=== PATIENT | female | born 1935 | race Caucasian/White ===

== ENCOUNTER → 2017-11-06 10:47 | Outpatient (CLI) | payer MEDICARE, SELFPAY ==
--- NOTE | 2017-11-06 10:51 | US_ITS ---
STUDY: RENAL ULTRASOUND - COMPLETE REASON FOR EXAM: Female, 82 years old. CKD STAGE III TECHNIQUE: Ultrasound evaluation of the kidneys was performed with real-time and static yi-scale imaging. COMPARISON: None. FINDINGS: RIGHT KIDNEY: Normal location of the right kidney, which is normal in size. The right kidney measures 8.1X4.3X3.8 cm. There is a normal cortex of the right kidney. The renal cortex measures 1.2 cm. There is no right renal mass or cyst. There are no right renal calculi. There is no right hydronephrosis. DISTAL RIGHT URETER: There is non-visualization of the distal right ureter. There is no demonstrated right ureterovesical junction calculus. There is no demonstrated right ureteral jet. LEFT KIDNEY: Normal location of the left kidney, which is normal in size. The left kidney measures 9.2X3.6X3.7 cm. There is a normal cortex of the left kidney. The renal cortex measures 1.3 cm. There is no left renal mass or cyst. There are no left renal calculi. There is no left hydronephrosis. DISTAL LEFT URETER: There is non-visualization of the distal left ureter. There is no demonstrated left ureterovesical junction calculus. There is no demonstrated left ureteral jet. AORTA: There is obscuration of the abdominal aorta by overlying bowel gas BLADDER: The distended urinary bladder has a volume of 49 ml. There is a normal wall thickness of the distended urinary bladder. There is no demonstrated mass within the urinary bladder. There are no demonstrated bladder calculi. There is hypoechoic focus in the left ovary measuring 59 x X3.9 X43 mm. US/Kidney and Bladder IMPRESSION: Normal ultrasound of the kidneys and urinary bladder. Incidental note of a possible left ovarian cyst. Dedicated pelvic ultrasound could further evaluate. This is an abnormal finding for the patient's age. Electronically Signed: Piyush Ross MD at 20:25 EDT , Service support ,
== END ==
PROVIDERS: Family Provider Nurse Practitioner Family; PCP Nurse Practitioner Family; Visit Provider Internal Medicine Nephrology
DX: N18.3 Chronic kidney disease, stage 3 (moderate) (principal)
CPT/HCPCS: 76770

== ENCOUNTER → 2017-11-19 12:37 | Outpatient (CLI) | payer MEDICARE, SELFPAY ==
--- NOTE | 2017-11-19 12:40 | US_ITS ---
STUDY: ULTRASOUND OF THE FEMALE PELVIS - COMPLETE REASON FOR EXAM: Female, 82 years old. Ovarian cyst. LMP: The patient is postmenopausal. TECHNIQUE: Transabdominal TECHNICAL QUALITY: Adequate. COMPARISON: None. FINDINGS: The uterus is anteverted and is in a midline position. The uterus measures 5.4 cm x 3.7 cm x 1.7 cm. Normal uterine cervix. The endometrium is thickened and measures 7.7 mm in thickness, and is fluid distended. There is no demonstrated endometrial mass. There is no demonstrated myometrial mass. I.U.D. - The patient does not have an I.U.D. The right ovary is non-visualized. The left ovary is visualized. The left ovary is enlarged and measures 6.8 cm x 4.6 x centimeters 4.4 cm. There is a 5.7 cm x 3.7 cm x 3.7 cm cyst in the left ovary. There is no visualized left adnexal mass or complex lesion. There is normal arterial and normal venous vascularity. There is no fluid in the cul-de-sac. The pre void volume of the bladder was 295 ml. Polycystic ovary disease: No. US/Pelvic (Non ) IMPRESSION: Thickened fluid filled endometrium. Enlarged left ovary with large left ovarian cyst. Clinical correlation is recommended. Electronically Signed: Juan Weems MD at 9:05 EDT Tel [phone], Service support ,
== END ==
PROVIDERS: Family Provider Nurse Practitioner Family; PCP Nurse Practitioner Family; Visit Provider Nurse Practitioner Family
DX: R93.5 Abnormal findings on diagnostic imaging of other abdominal regions, including retroperitoneum (principal)
CPT/HCPCS: 76856

== ENCOUNTER → 2018-02-04 14:19 | Outpatient (CLI) | payer MEDICARE, SELFPAY ==
[2018-02-04 16:26] LABS: Albumin, Serum 3.9 g/dL (3.2-5.0); BUN 18 mg/dL (7-18); BUN/Creat Ratio 15.8 RATIO (10-20); Chloride 106 mmol/L (98-107); Creatinine, Serum 1.14 mg/dL (0.55-1.02); EST Glomerular Filtration Rate 49 mL/min (>60); Est Glom Filt Rate - Afr Amer 59 mL/min (>60); Glucose 90 mg/dL (74-106); Phosphorus 3.3 mg/dL (2.5-4.9); Sodium Level 141 mmol/L (136-145)
--- OUTSIDE RECORDS SUMMARY | 2018-03-23 11:33 | XMS RPT_ITS ---
:1935 Author Organization OHIP Care Team Providers Name Role Phone FAUSTO GALICIA CNP Attending Unavailable FAUSTO GALICIA CNP Primary Care Unavailable JAYNE ANTHONY MDH Attending Unavailable FAUSTO GALICIA CNP Primary Care Unavailable FAUSTO GALICIA CNP Attending Unavailable FAUSTO GALICIA CNP Primary Care Unavailable FAUSTO GALICIA CNP Attending Unavailable FAUSTO GALICIA CNP Primary Care Unavailable Lois Newton Attending Unavailable Lois Newton Referring Unavailable Fausto Galicia DATA PROCESSING OPERATOR-C Primary Care Unavailable Lois Newton Attending Unavailable Fausto Galicia DATA PROCESSING OPERATOR-C Primary Care Unavailable Fausto Galicia DATA PROCESSING OPERATOR-C Attending Unavailable Fausto Galicia DATA PROCESSING OPERATOR-C Primary Care Unavailable PROBLEMS PROBLEMS DATE TYPE CONDITION / CODE ATTENDING STATUS SOURCE 03/16/2018 Admitting Hypothyroidism, NISHA LLAMAS, Active [employer] Diagnosis unspecified / FAUSTO Vega E03.9(ICD-10) Repository 11/06/2017 Unknown N18.3 - Chronic [place]manLois Active Liam kidney disease, [facility] stage 3 (moderate) Hospital / N18.3(ICD-10) Repository 09/08/2017 Admitting Vitamin D NISHA LLAMAS, Active [employer] Diagnosis deficiency, FAUSTO Vega unspecified / Repository E55.9(ICD-10) 09/08/2017 Admitting Hyperlipidemia, NISHA LLAMAS, Active [employer] Diagnosis unspecified / FAUSTO Vega E78.5(ICD-10) Repository 09/08/2017 Admitting Essential NISHA LLAMAS, Active [employer] Diagnosis (primary) FAUSTO Vega hypertension / Repository I10(ICD-10) 04/07/2017 Admitting Chronic kidney NISHA LLAMAS, Active [employer] Diagnosis disease, stage 3 FAUSTO Vega (moderate) / Repository N18.3(ICD-10) PROCEDURES PROCEDURES No Procedure Records FoundRESULTS RESULTS CBC Collected: 03/16/2018 Status: F Source: [facility] 10:10 AM [facility] REPOSITORY TYPE CODE TESTS RESULT OUT OF REFERENCE UNITS RANGE LAB WBC(LOINC) 4.60-10.80 10 3/mcL WBC 4.90 LAB RBCCT(LOINC 4.20-5.40 10 6/mcL ) RBC 4.29 LAB HGB(LOINC) 12.0-16.0 G/dL Hgb 12.7 LAB HCT(LOINC) 37.0-47.0 % Hct 38.2 LAB MCV(LOINC) 80.0-94.0 fL MCV 89.0 LAB MCH(LOINC) 27.0-31.2 pg MCH 29.5 LAB MCHC(LOINC) 33.0-37.0 G/dL MCHC 33.2 LAB RDW(LOINC) 11.5-14.5 % High RDW 15.4 LAB PLT(LOINC) 130-400 10 3/mcL Platelet 219 LAB MPV(LOINC) 7.4-10.4 fL MPV 8.3 Performed By: #### CBC, ADIFF, ANEU #### [address] [address] #### TSH, FT4, LIPID, CMP, GFR #### [place] [address] .AUTO DIFF Collected: 03/16/2018 Status: F Source: [facility] 10:10 AM [facility] REPOSITORY TYPE CODE TESTS RESULT OUT OF REFERENCE UNITS RANGE LAB NII(LOINC) 37.0-80.0 % Neutrophil % 64.4 LAB LYM(LOINC) 10.0-50.0 % Lymphocyte % 21.0 LAB MON(LOINC) 1.7-13.0 % Monocyte % 12.2 LAB EO(LOINC) 0.0-7.0 % Eosinophil % 1.3 LAB BAS(LOINC) 0.0-2.5 % Basophil % 1.1 LAB ABLYM(LOIN 0.77-3.85 10 3/mcL C) Lymphocyte, 1.00 Absolute LAB YEIMI(LOINC 0.15-1.00 10 3/mcL ) Monocyte, 0.60 Absolute LAB AEOS(LOINC 0.00-0.40 10 3/mcL ) Eosinophil, 0.10 Absolute LAB ABAS(LOINC 0.00-0.19 10 3/mcL ) Basophil, 0.10 Absolute Performed By: #### CBC, ADIFF, ANEU #### [place] [id number] #### TSH, FT4, LIPID, CMP, GFR #### [place] [address] .NEUABS Collected: 03/16/2018 Status: F Source: [facility] 10:10 AM [facility] REPOSITORY TYPE CODE TESTS RESULT OUT OF REFERENCE UNITS RANGE LAB ANEU(LOINC) 2.85-6.16 10 3/mcL Neutrophil, 3.20 Absolute Performed By: #### CBC, ADIFF, ANEU #### [place] [id number] #### TSH, FT4, LIPID, CMP, GFR #### [place] [address] TSH Collected: 03/16/2018 Status: F Source: [facility] 10:10 AM [facility] REPOSITORY TYPE CODE TESTS RESULT OUT OF RANGE REFERENCE UNITS LAB TSH(LOINC) 0.36-3.74 mcIU/mL TSH 1.69 Performed By: #### CBC, ADIFF, ANEU #### [address] [address] #### TSH, FT4, LIPID, CMP, GFR #### [address] [address] FT4 Collected: 03/16/2018 Status: F Source: [facility] 10:10 AM [facility] REPOSITORY TYPE CODE TESTS RESULT OUT OF RANGE REFERENCE UNITS LAB FT4(LOINC) 0.76-1.46 ng/dL High Free T4 1.52 Performed By: #### CBC, ADIFF, ANEU #### [address] [address] #### TSH, FT4, LIPID, CMP, GFR #### [address] [address] LIPID Collected: 03/16/2018 Status: F Source: [facility] 10:10 AM [facility] REPOSITORY TYPE CODE TESTS RESULT OUT OF REFERENCE UNITS RANGE LAB CHOL(LOINC 0-200 mg/dL ) Cholesterol High 230 Result Comment: Cholesterol Reference Interval: Less than 200 Desirable 200-239 Borderline high risk 240 and above High risk LAB TRIG(LOINC) 0-150 mg/dL Triglycerides 39 Result Comment: Triglyceride Reference Interval: Less than 150 Normal 150-199 Borderline high risk 200-499 High risk 500 or higher Very high risk LAB HD(LOINC) 40-60 mg/dL HDL High Cholesterol 112 LAB LDL(LOINC) 0-130 mg/dL LDL Cholesterol 110 Performed By: #### CBC, ADIFF, ANEU #### [address] [address] #### TSH, FT4, LIPID, CMP, GFR #### [address] [address] CMP Collected: 03/16/2018 Status: F Source: [facility] 10:10 AM [facility] REPOSITORY TYPE CODE TESTS RESULT OUT OF REFERENCE UNITS RANGE LAB GLU(LOINC) 83-110 mg/dL Glucose Level 93 LAB NA(LOINC) 136-145 mmol/L Sodium Level 143 LAB K(LOINC) 3.5-5.1 mmol/L Potassium Level 4.7 LAB CL(LOINC) 98-107 mmol/L Chloride 103 LAB CO2(LOINC) 23-31 mmol/L CO2 30 LAB EBAL(LOINC mEq/L ) Electrolyte Balance 10.0 LAB BUN(LOINC) 7-18 mg/dL BUN High 21 LAB CRE(LOINC) 0.55-1.02 mg/dL Creatinine High Lvl (s) 1.08 LAB BC(LOINC) 7-27 ratio BUN/Creatinine 19 Ratio LAB CA(LOINC) 8.4-10.2 mg/dL Calcium Lvl 9.7 LAB PROT(LOINC 6.4-8.2 G/dL ) Total Protein 7.0 LAB ALB(LOINC) 3.4-4.8 G/dL Albumin Level 4.2 LAB GLB(LOINC) G/dL Globulin 2.8 LAB AG(LOINC) 1.1-2.5 ratio A/G Ratio 1.5 LAB BILT(LOINC 0.2-1.0 mg/dL ) Bili Total 0.6 LAB AP(LOINC) 40-135 U/L Alk Phos 98 LAB AST(LOINC) 10-40 U/L AST/SGOT 27 LAB ALT(LOINC) 10-35 U/L ALT/SGPT 32 Performed By: #### CBC, ADIFF, ANEU #### [address] [address] #### TSH, FT4, LIPID, CMP, GFR #### [address] [address] .GFR Collected: 03/16/2018 Status: F Source: [facility] 10:10 AM [facility] REPOSITORY TYPE CODE TESTS RESULT OUT OF REFERENCE UNITS RANGE LAB GFRAA(LOINC ml/min/1.73 ) sqm GFR 59 Mozambican Result Comment: GFR Population mean for , Non- Americans Ages 20-29 = 116 mL/min/1.73 sq.m. Ages 30-39 = 107 mL/min/1.73 sq.m. Ages 40-49 = 99 mL/min/1.73 sq.m. Ages 50-59 = 93 mL/min/1.73 sq.m. Ages 60-69 = 85 mL/min/1.73 sq.m. Ages 70+ = 75 mL/min/1.73 sq.m. Chronic Kidney Disease: Less than 60 mL/min/1.73 square meters End Stage Renal Disease: Less than 15 mL/min/1.73 square meters LAB GFRNO(LOINC) ml/min/1.73sqm GFR Non- 49 Result Comment: GFR Population mean for , Non- Americans Ages 20-29 = 116 mL/min/1.73 sq.m. Ages 30-39 = 107 mL/min/1.73 sq.m. Ages 40-49 = 99 mL/min/1.73 sq.m. Ages 50-59 = 93 mL/min/1.73 sq.m. Ages 60-69 = 85 mL/min/1.73 sq.m. Ages 70+ = 75 mL/min/1.73 sq.m. Chronic Kidney Disease: Less than 60 mL/min/1.73 square meters End Stage Renal Disease: Less than 15 mL/min/1.73 square meters Performed By: #### CBC, ADIFF, ANEU #### [address] [address] #### TSH, FT4, LIPID, CMP, GFR #### [address] [address] RENAL PROFILE Collected: 02/04/2018 Status: F Source: [facility] 2:21 PM [facility] REPOSITORY TYPE CODE TESTS RESULT OUT OF RANGE REFERENCE UNITS LAB L501.0100 74-106 mg/dL Normal GLU 90 Result Comment: Please note revised GLUCOSE reference range effective 2017. LAB L501.1000 7-18 mg/dL Normal BUN 18 LAB L501.1100 0.55-1.02 mg/dL High CREAT,SERUM 1.14 Result Comment: The validity of the calculated GFR AND GFRAA in patients over 70 years has not been determined. Clinical correlation is essential. LAB L501.1110 >60 mL/min Low EST GFR 49 Result Comment: Non- GFR Calc LAB L501.1115 >60 mL/min Low EST GFR - AA 59 Result Comment: GFR Calc LAB L501.1300 10-20 RATIO Normal BUN/CRE 15.8 LAB L501.1800 3.2-5.0 g/dL Normal ALB 3.9 LAB L501.2200 8.5-10.1 mg/dL CA Normal 9.0 LAB L501.2300 2.5-4.9 mg/dL Normal PHOS 3.3 LAB L501.5300 136-145 mmol/L NA Normal 141 LAB L501.5600 3.5-5.1 mmol/L K Normal 4.0 LAB L501.5900 98-107 mmol/L CL Normal 106 LAB L501.6100 21.0-32.0 mmol/L Normal CO2 27.0 Performed By: #### L500.3600 #### [facility] [address] [facility] [place], [address] PELVIC (NON ) Observed: 11/19/2017 Status: F Source: [place] 12:40 PM [facility] REPOSITORY [facility] Imaging Services [address] [place] [address] Pelvic (Non ) MR#: [id number] Acct: [id number] Name: MARIO YEUNG Rep #: [id number] : 1935 F 82 From: Juan Weems MD PCP: MAGDA Ortiz Status: REG CLI Study: Pelvic (Non ) Date of Exam: 11/19/17 Exam# [id number] Ordering Dr: Fausto Galicia STUDY: ULTRASOUND OF THE FEMALE PELVIS - COMPLETE REASON FOR EXAM: Female, 82 years old. Ovarian cyst. LMP: The patient is postmenopausal. TECHNIQUE: Transabdominal TECHNICAL QUALITY: Adequate. COMPARISON: None. FINDINGS: The uterus is anteverted and is in a midline position. The uterus measures 5.4 cm x 3.7 cm x 1.7 cm. Normal uterine cervix. The endometrium is thickened and measures 7.7 mm in thickness, and is fluid distended. There is no demonstrated endometrial mass. There is no demonstrated myometrial mass. I.U.D. - The patient does not have an I.U.D. The right ovary is non-visualized. The left ovary is visualized. The left ovary is enlarged and measures 6.8 cm x 4.6 x centimeters 4.4 cm. There is a 5.7 cm x 3.7 cm x 3.7 cm cyst in the left ovary. There is no visualized left adnexal mass or complex lesion. There is normal arterial and normal venous vascularity. There is no fluid in the cul-de-sac. The pre void volume of the bladder was 295 ml. Polycystic ovary disease: No. US/Pelvic (Non ) IMPRESSION: Thickened fluid filled endometrium. Enlarged left ovary with large left ovarian cyst. Clinical correlation is recommended. Electronically Signed: Juan Weems MD at 9:05 EDT Tel [phone], Service support , CC: MAGDA Galicia [employer] Grower: Signed KIDNEY AND BLADDER Observed: 11/06/2017 Status: F Source: [place] 10:51 [facility] REPOSITORY [facility] Imaging Services [address] [place] [address] Kidney and Bladder MR#: [id number] Acct: [id number] Name: MARIO YEUNG Rep #: [id number] : 1935 F 82 From: Piyush Ross MD PCP: MAGDA Ortiz Status: REG CLI Study: Kidney and Bladder Date of Exam: 11/06/17 Exam# [id number] Ordering Dr: Lois Newton DO STUDY: RENAL ULTRASOUND - COMPLETE REASON FOR EXAM: Female, 82 years old. CKD STAGE III TECHNIQUE: Ultrasound evaluation of the kidneys was performed with real-time and static yi-scale imaging. COMPARISON: None. FINDINGS: RIGHT KIDNEY: Normal location of the right kidney, which is normal in size. The right kidney measures 8.1X4.3X3.8 cm. There is a normal cortex of the right kidney. The renal cortex measures 1.2 cm. There is no right renal mass or cyst. There are no right renal calculi. There is no right hydronephrosis. DISTAL RIGHT URETER: There is non-visualization of the distal right ureter. There is no demonstrated right ureterovesical junction calculus. There is no demonstrated right ureteral jet. LEFT KIDNEY: Normal location of the left kidney, which is normal in size. The left kidney measures 9.2X3.6X3.7 cm. There is a normal cortex of the left kidney. The renal cortex measures 1.3 cm. There is no left renal mass or cyst. There are no left renal calculi. There is no left hydronephrosis. DISTAL LEFT URETER: There is non-visualization of the distal left ureter. There is no demonstrated left ureterovesical junction calculus. There is no demonstrated left ureteral jet. AORTA: There is obscuration of the abdominal aorta by overlying bowel gas BLADDER: The distended urinary bladder has a volume of 49 ml. There is a normal wall thickness of the distended urinary bladder. There is no demonstrated mass within the urinary bladder. There are no demonstrated bladder calculi. There is hypoechoic focus in the left ovary measuring 59 x X3.9 X43 mm. US/Kidney and Bladder IMPRESSION: Normal ultrasound of the kidneys and urinary bladder. Incidental note of a possible left ovarian cyst. Dedicated pelvic ultrasound could further evaluate. This is an abnormal finding for the patient's age. Electronically Signed: Piyush Ross MD at 20:25 EDT , Service support , CC: MAGDA Galicia; Lois Newton DO [employer] Spr[employer] Grower: Signed CBC Collected: 09/08/2017 Status: F Source: [facility] 9:10 AM [facility] REPOSITORY TYPE CODE TESTS RESULT OUT OF REFERENCE UNITS RANGE LAB WBC(LOINC) 4.60-10.80 10 3/mcL WBC 4.70 LAB RBCCT(LOINC 4.20-5.40 10 6/mcL ) Low RBC 3.95 LAB HGB(LOINC) 12.0-16.0 G/dL Low Hgb 11.9 LAB HCT(LOINC) 37.0-47.0 % Low Hct 35.2 LAB MCV(LOINC) 80.0-94.0 fL MCV 89.0 LAB MCH(LOINC) 27.0-31.2 pg MCH 30.1 LAB MCHC(LOINC) 33.0-37.0 G/dL MCHC 33.8 LAB RDW(LOINC) 11.5-14.5 % High RDW 15.6 LAB PLT(LOINC) 130-400 10 3/mcL Platelet 202 LAB MPV(LOINC) 7.4-10.4 fL MPV 8.3 Performed By: #### CBC, ADIFF, ANEU, GFR, LIPID, CMP #### [address] [address] #### VIDH #### [address] [address] .AUTO DIFF Collected: 09/08/2017 Status: F Source: [facility] 9:10 AM [facility] REPOSITORY TYPE CODE TESTS RESULT OUT OF REFERENCE UNITS RANGE LAB NII(LOINC) 37.0-80.0 % Neutrophil % 61.6 LAB LYM(LOINC) 10.0-50.0 % Lymphocyte % 23.8 LAB MON(LOINC) 1.7-13.0 % Monocyte % 11.6 LAB EO(LOINC) 0.0-7.0 % Eosinophil % 2.4 LAB BAS(LOINC) 0.0-2.5 % Basophil % 0.6 LAB ABLYM(LOIN 0.77-3.85 10 3/mcL C) Lymphocyte, 1.10 Absolute LAB YEIMI(LOINC 0.15-1.00 10 3/mcL ) Monocyte, 0.50 Absolute LAB AEOS(LOINC 0.00-0.40 10 3/mcL ) Eosinophil, 0.10 Absolute LAB ABAS(LOINC 0.00-0.19 10 3/mcL ) Basophil, 0.00 Absolute Performed By: #### CBC, ADIFF, ANEU, GFR, LIPID, CMP #### [address] [address] #### VIDH #### [address] [address] .NEUABS Collected: 09/08/2017 Status: F Source: [facility] 9:10 AM [facility] REPOSITORY TYPE CODE TESTS RESULT OUT OF REFERENCE UNITS RANGE LAB ANEU(LOINC) 2.85-6.16 10 3/mcL Neutrophil, 2.90 Absolute Performed By: #### CBC, ADIFF, ANEU, GFR, LIPID, CMP #### [address] [address] #### VIDH #### [facility] [address] [place] [address] .GFR Collected: 09/08/2017 Status: F Source: [facility] 9:10 AM [facility] REPOSITORY TYPE CODE TESTS RESULT OUT OF REFERENCE UNITS RANGE LAB GFRAA(LOINC ml/min/1.73 ) sqm GFR >60 Mozambican Result Comment: GFR Population mean for , Non- Americans Ages 20-29 = 116 mL/min/1.73 sq.m. Ages 30-39 = 107 mL/min/1.73 sq.m. Ages 40-49 = 99 mL/min/1.73 sq.m. Ages 50-59 = 93 mL/min/1.73 sq.m. Ages 60-69 = 85 mL/min/1.73 sq.m. Ages 70+ = 75 mL/min/1.73 sq.m. Chronic Kidney Disease: Less than 60 mL/min/1.73 square meters End Stage Renal Disease: Less than 15 mL/min/1.73 square meters LAB GFRNO(LOINC) ml/min/1.73sqm GFR Non- 50 Result Comment: GFR Population mean for , Non- Americans Ages 20-29 = 116 mL/min/1.73 sq.m. Ages 30-39 = 107 mL/min/1.73 sq.m. Ages 40-49 = 99 mL/min/1.73 sq.m. Ages 50-59 = 93 mL/min/1.73 sq.m. Ages 60-69 = 85 mL/min/1.73 sq.m. Ages 70+ = 75 mL/min/1.73 sq.m. Chronic Kidney Disease: Less than 60 mL/min/1.73 square meters End Stage Renal Disease: Less than 15 mL/min/1.73 square meters Performed By: #### CBC, ADIFF, ANEU, GFR, LIPID, CMP #### [address] [address] #### VI #### [address] [address] LIPID Collected: 09/08/2017 Status: F Source: [facility] 9:10 AM [facility] REPOSITORY TYPE CODE TESTS RESULT OUT OF REFERENCE UNITS RANGE LAB CHOL(LOINC 131-200 mg/dL ) Cholesterol 200 Result Comment: Cholesterol Reference Interval: Less than 200 Desirable 200-239 Borderline high risk 240 and above High risk LAB TRIG(LOINC) 40-150 mg/dL Triglycerides 53 Result Comment: Triglyceride Reference Interval: Less than 150 Normal 150-199 Borderline high risk 200-499 High risk 500 or higher Very high risk LAB HD(LOINC) 35-90 mg/dL HDL Cholesterol 88 Result Comment: HDL Reference Interval: Less than 40 Low - high risk 60 or above Optimal/lowers risk LAB LDL(LOINC) 0-130 mg/dL LDL Cholesterol 101 Result Comment: LDL is a calculated result and requires a 12-hr fast. LDL Reference Interval: Less than 100 Optimal 100-129 Near or above optimal 130-159 Borderline high risk 160-189 High risk 190 and above Very high risk Performed By: #### CBC, ADIFF, ANEU, GFR, LIPID, CMP #### [address] [address] #### VIDH #### [address] [address] CMP Collected: 09/08/2017 Status: F Source: [facility] 9:10 AM [facility] REPOSITORY TYPE CODE TESTS RESULT OUT OF REFERENCE UNITS RANGE LAB GLU(LOINC) 83-110 mg/dL Glucose Level 86 LAB NA(LOINC) 136-146 mEq/L Sodium Level 142 LAB K(LOINC) 3.5-5.1 mEq/L Potassium Level 4.3 LAB CL(LOINC) 98-107 mEq/L Chloride 105 LAB CO2(LOINC) 23-31 mEq/L CO2 26 LAB EBAL(LOINC mEq/L ) Electrolyte Balance 11.0 LAB BUN(LOINC) 7.0-18.0 mg/dL BUN High 21.8 LAB CRE(LOINC) 0.6-1.2 mg/dL Creatinine Lvl (s) 1.0 LAB BC(LOINC) 7-27 ratio BUN/Creatinine 22 Ratio LAB CA(LOINC) 8.4-10.2 mg/dL Calcium Lvl 9.3 LAB PROT(LOINC 6.0-8.3 G/dL ) Total Protein 6.2 LAB ALB(LOINC) 3.4-4.8 G/dL Albumin Level 4.3 LAB GLB(LOINC) G/dL Globulin 1.9 LAB AG(LOINC) 1.1-2.5 ratio A/G Ratio 2.3 LAB BILT(LOINC 0.2-1.0 mg/dL ) Bili Total 0.6 LAB AP(LOINC) 40-135 IU/L Alk Phos 95 LAB AST(LOINC) 10-40 IU/L AST/SGOT 21 LAB ALT(LOINC) 10-35 IU/L ALT/SGPT 13 Performed By: #### CBC, ADIFF, ANEU, GFR, LIPID, CMP #### [address] [address] #### VIDH #### [place] [address] VIDH Collected: 09/08/2017 Status: F Source: [facility] 9:10 AM [facility] REPOSITORY TYPE CODE TESTS RESULT OUT OF RANGE REFERENCE UNITS LAB VIDH(LOINC) ng/mL Vit. D 42 25-Hydroxy Result Comment: Interpretive Values Based on Total 25(OH)D: Severe Deficiency <20 ng/mL Mild to Moderate Deficiency 20-30 ng/mL Optimum Levels 30-100 ng/mL Toxicity Possible >100 ng/mL Performed By: #### CBC, ADIFF, ANEU, GFR, LIPID, CMP #### [address] [address] #### VIDH #### [place] [address] CMP Collected: 04/07/2017 Status: F Source: [facility] 9:10 AM [facility] REPOSITORY TYPE CODE TESTS RESULT OUT OF REFERENCE UNITS RANGE LAB 1547-9 83-110 mg/dL GLUCOSE 93 LAB NA(LOINC) 136-146 mEq/L Sodium Level 139 LAB K(LOINC) 3.5-5.1 mEq/L Potassium Level 4.9 LAB CL(LOINC) 98-107 mEq/L Chloride 101 LAB CO2(LOINC) 23-31 mEq/L CO2 26 LAB EBAL(LOINC mEq/L ) Electrolyte Balance 12.0 LAB BUN(LOINC) 7.0-18.0 mg/dL BUN High 19.4 LAB CRE(LOINC) 0.6-1.2 mg/dL Creatinine Lvl (s) 1.0 LAB BC(LOINC) 7-27 ratio BUN/Creatinine 19 Ratio LAB CA(LOINC) 8.4-10.2 mg/dL Calcium Lvl 9.1 LAB PROT(LOINC 6.0-8.3 G/dL ) Total Protein 6.0 LAB ALB(LOINC) 3.4-4.8 G/dL Albumin Level 4.3 LAB GLB(LOINC) G/dL Globulin 1.7 LAB AG(LOINC) 1.1-2.5 ratio A/G Ratio 2.5 LAB BILT(LOINC 0.2-1.0 mg/dL ) Bili Total 0.7 LAB AP(LOINC) 40-135 IU/L Alk Phos 88 LAB AST(LOINC) 10-40 IU/L AST/SGOT 26 LAB ALT(LOINC) 10-35 IU/L ALT/SGPT 21 Performed By: #### CMP, GFR #### [address] [address] .GFR Collected: 04/07/2017 Status: F Source: [facility] 9:10 AM [facility] REPOSITORY TYPE CODE TESTS RESULT OUT OF REFERENCE UNITS RANGE LAB GFRAA(LOINC ml/min/1.73 ) sqm GFR 67 Mozambican Result Comment: GFR Population mean for , Non- Americans Ages 20-29 = 116 mL/min/1.73 sq.m. Ages 30-39 = 107 mL/min/1.73 sq.m. Ages 40-49 = 99 mL/min/1.73 sq.m. Ages 50-59 = 93 mL/min/1.73 sq.m. Ages 60-69 = 85 mL/min/1.73 sq.m. Ages 70+ = 75 mL/min/1.73 sq.m. Chronic Kidney Disease: Less than 60 mL/min/1.73 square meters End Stage Renal Disease: Less than 15 mL/min/1.73 square meters LAB GFRNO(LOINC) ml/min/1.73sqm GFR Non- 55 Result Comment: GFR Population mean for , Non- Americans Ages 20-29 = 116 mL/min/1.73 sq.m. Ages 30-39 = 107 mL/min/1.73 sq.m. Ages 40-49 = 99 mL/min/1.73 sq.m. Ages 50-59 = 93 mL/min/1.73 sq.m. Ages 60-69 = 85 mL/min/1.73 sq.m. Ages 70+ = 75 mL/min/1.73 sq.m. Chronic Kidney Disease: Less than 60 mL/min/1.73 square meters End Stage Renal Disease: Less than 15 mL/min/1.73 square meters Performed By: #### CMP, GFR #### Daya [address] [address] ALLERGIES ALLERGIES No Allergies Records FoundENCOUNTERS ENCOUNTERS ADMIT/DISCHARGE ACCOUNT NUMBER ADMITTING ENCOUNTER LOCATION SOURCE CLASS 03/16/2018 [id number] Ambulatory BBuilding:DR Daya CELESTIN [facility] Repository 02/04/2018 [id number] [facility] ding:LAB.FUT Repository URE 11/19/2017 [id number] [facility] ding:OPUS Repository 11/06/2017 [id number] [facility] ding:OPUS Repository 10/06/2017/10/07/19 [id number] Ambulatory [address] ding:[facility] Repository 09/08/2017/09/13/19 [id number] Ambulatory [address] ding:RIKA [facility] Repository 04/07/2017/04/11/19 [id number] Ambulatory [address] ding:[facility] Repository PAYERS PAYERS ENCOUNTER GUARANTOR PAYER SUBSCRIBER SOURCE 03/16/2018 MARIO E Primary MARIO Bhavna [facility] TROYERDOB: Insurance:MEDICARE TROYERDOB: [facility] [id number] PART B INSCOPolicy [id number] Repository [place] Number: [address] [facility] [id number] [place], [place] [address]Qur: Date:2018-03-16 - , [place] [address]Ivs: [id number] ()Tel: ([phone]) Name:PCGS () () [employer] [id number] () [address] [place] [address]MG: 02/04/2018 Mario E Primary Mario E Liam [id number] S Insurance:MEDICARE TroyerDOB: Community [place] [facility] [id number] Number: Repository , [place] [address]Crk: [id number] Date:2017-11-04 () 02/04/2018 Secondary NOT GIVENUNK [place] Insurance:SELF PAY [facility] Number: Effective Repository Date:2017-11-04 11/19/2017 Mario E Primary Mario E [place] [id number] Insurance:MEDICARE TroyerDOB: Community [place] [facility] [id number] [facility] Health Number: Repository , [place] [address]Vtc: [id number] Date:2017-11-10 () 11/19/2017 Secondary NOT GIVENUNK [place] Insurance:SELF PAY [facility] Number: Effective Repository Date:2017-11-10 11/06/2017 Mario E Primary Mario E Liam [id number] S Insurance:MEDICARE TroyerDOB: Community [place] [facility] [id number] View Health Number: Repository , [place] [address]Cai: [id number] Date:2017-11-03 () 11/06/2017 Secondary NOT GIVENUNK Liam Insurance:SELF PAY [facility] Number: Effective Repository Date:2017-11-03 10/06/2017 MARIO E Primary MARIO E [facility] TROYERDOB: Insurance:MEDICARE TROYERDOB: [facility] B PART BPolicy Number: [id number] Repository [place] [id number] [address]ANY Date:2017-08-12 [facility] , [place] [address]Qwk: [id number] , [place] [address]Obk: Name:PCGS (HP)Tel: ([phone]) Administrators LLCPO (HP) (WP) [address] [phone], 000-0000 (WP) [place] [address]CO: 09/08/2017 [facility]:MEDICARE TROYERDOB: [facility] B PART BPolicy Number: [id number] Repository [place] [id number] [address] [place] [address] Date:2017-09-08 - [facility], [place] [address]Zfn: [id number] , [place] [address]Uky: Name:[facility] (HP)Tel: ([phone]) Administrators LLCPO (HP) (WP) [address] [phone], 000-0000 (WP) [place] [address]XW: 04/07/2017 [facility] Insurance:MEDICARE TROYERDOB: [facility] B PART BPolicy Number: [id number] Repository [place] [id number] [address] [address]ABEBA Date:2017-04-07 - [facility] , [place] [address]Atb: [id number] , [place] [address]Kiq: Name:[facility] (HP)Tel: ([phone]) Administ[employer] LLCP[employer] (HP) (WP) [address] [address]Sqtcmeahv, [phone] (WP) [place] [address]IP:
== END ==
PROVIDERS: Family Provider Nurse Practitioner Family; PCP Nurse Practitioner Family; Visit Provider Internal Medicine Nephrology
DX: N18.3 Chronic kidney disease, stage 3 (moderate) (principal)
CPT/HCPCS: 36415; 80069

== ENCOUNTER → 2018-05-28 11:53 | Outpatient (CLI) | payer MEDICARE, SELFPAY ==
--- NOTE | 2018-05-28 11:56 | US_ITS ---
STUDY: ULTRASOUND OF THE FEMALE PELVIS - COMPLETE REASON FOR EXAM: Female, 83 years old. 3 of ovarian cyst. LMP: Postmenopausal. TECHNIQUE: Transabdominal TECHNICAL QUALITY: Limited. The examination is limited. The patient could not tolerate transvaginal ultrasound examination. COMPARISON: 11/19/2017. FINDINGS: The uterus is anteverted and is in a midline position. The uterus measures 5.2 x 2.7 x 2.1 cm. Normal uterine cervix. The endometrium measures 7 mm in thickness, and is hypoechoic. There is fluid within the endometrial cavity. There is no demonstrated myometrial mass. I.U.D. - The patient does not have an I.U.D. The right ovary is non-visualized. The left ovary is visualized. The left ovary measures 6.1 x 5.1 x 3.3 cm. There again is a large cyst in the left ovary measuring about 4.7 x 4.1 x 2.9 cm unchanged or may be slightly smaller in size in the previous exam. There is no visualized left adnexal mass or complex lesion. There is normal arterial and normal venous vascularity. There is no fluid in the cul-de-sac. The pre void volume of the bladder was 428 ml. Polycystic ovary disease: No. US/Pelvic (Non ) IMPRESSION: 1. Persistent nonspecific fluid within the endometrial cavity. 2. Borderline thickness of the endometrium for a postmenopausal patient. 3. Persistent left ovarian cyst unchanged or may be slightly smaller in size and the previous exam. 4. Further follow-up exams are recommended. Electronically Signed: Thiago Machado MD at 12:59 EDT Tel , Service support ,
== END ==
PROVIDERS: Family Provider Nurse Practitioner Family; PCP Nurse Practitioner Family; Referring Provider Nurse Practitioner Family; Visit Provider Nurse Practitioner Family
DX: N83.202 Unspecified ovarian cyst, left side (principal); N18.3 Chronic kidney disease, stage 3 (moderate)
CPT/HCPCS: 76856

== ENCOUNTER → 2018-12-09 11:43 | Outpatient (CLI) | payer MEDICARE, SELFPAY ==
[2018-12-09 12:36] LABS: BUN 26 mg/dL (7-18); BUN/Creat Ratio 23.4 RATIO (10-20); Calcium,Total 9.1 mg/dL (8.5-10.1); Chloride 104 mmol/L (98-107); Creatinine, Serum 1.11 mg/dL (0.55-1.02); EST Glomerular Filtration Rate 50 mL/min (>60); Est Glom Filt Rate - Afr Amer 60 mL/min (>60); Glucose 96 mg/dL (74-106); Phosphorus 3.2 mg/dL (2.5-4.9); Potassium 4.4 mmol/L (3.5-5.1); Sodium Level 139 mmol/L (136-145)
== END ==
PROVIDERS: Family Provider Nurse Practitioner Family; PCP Nurse Practitioner Family; Visit Provider Internal Medicine Nephrology
DX: N18.3 Chronic kidney disease, stage 3 (moderate) (principal)
CPT/HCPCS: 36415; 80069

== ENCOUNTER → 2019-05-09 13:05 | Outpatient (CLI) | payer MEDICARE, SELFPAY ==
[2019-05-09 14:18] LABS: Albumin, Serum 3.5 g/dL (3.2-5.0); BUN 18 mg/dL (7-18); BUN/Creat Ratio 17.3 RATIO (10-20); Calcium,Total 8.8 mg/dL (8.5-10.1); Chloride 108 mmol/L (98-107); Creatinine, Serum 1.04 mg/dL (0.55-1.02); EST Glomerular Filtration Rate 54 mL/min (>60); Est Glom Filt Rate - Afr Amer 65 mL/min (>60); Glucose 129 mg/dL (74-106); Phosphorus 3.2 mg/dL (2.5-4.9); Sodium Level 142 mmol/L (136-145)
== END ==
PROVIDERS: Family Provider Nurse Practitioner Family; PCP Nurse Practitioner Family; Referring Provider Internal Medicine Nephrology; Visit Provider Internal Medicine Nephrology
DX: N18.3 Chronic kidney disease, stage 3 (moderate) (principal)
CPT/HCPCS: 36415; 80069

== ENCOUNTER → 2020-04-30 09:50 | Outpatient (CLI) | payer MEDICARE, SELFPAY ==
[2020-04-30 11:07] LABS: Hematocrit 36.1 % (37-47); Hemoglobin 10.7 g/dL (12.0-15.0); Mean Corp Hgb Conc 29.6 g/dL (32-36); Mean Corpuscular Hgb 27.4 pg (27.0-32.0); Mean Corpuscular Volume 92.3 fL (81-99); Mean Platelet Vol. 10.1 fl (6.2-12.0); Platelet Count 242 K/mm3 (150-450); RBC Distribution Width CV 15.5 % (11.6-14.6); RBC Distribution Width SD 52.4 fl (35.1-43.9); Red Blood Count 3.91 M/mm3 (4.2-5.4); White Blood Count 5.6 K/mm3 (4.4-11.0)
[2020-04-30 11:30] LABS: PTHIN 69.2 pg/mL (18.4-80.1)
[2020-04-30 11:31] LABS: Albumin, Serum 3.9 g/dL (3.2-5.0); BUN 22 mg/dL (7-18); BUN/Creat Ratio 21.8 RATIO (10-20); Chloride 105 mmol/L (98-107); Creatinine, Serum 1.01 mg/dL (0.55-1.02); EST Glomerular Filtration Rate 56 mL/min (>60); Est Glom Filt Rate - Afr Amer 67 mL/min (>60); Glucose 92 mg/dL (74-106); Phosphorus 2.9 mg/dL (2.5-4.9); Potassium 4.2 mmol/L (3.5-5.1); Sodium Level 140 mmol/L (136-145)
[2020-04-30 11:39] LABS: Vitamin D,25 Hydroxy 40.8 ng/mL
== END ==
PROVIDERS: PCP Nurse Practitioner Family; Referring Provider Internal Medicine Nephrology; Visit Provider Internal Medicine Nephrology
DX: E55.9 Vitamin D deficiency, unspecified (principal); N18.30 Chronic kidney disease, stage 3 unspecified
CPT/HCPCS: 36415; 80069; 82306; 83970; 85027

== ENCOUNTER → 2021-01-23 16:49 | Outpatient (CLI) | payer MEDICARE, SELFPAY ==
[2021-01-23 17:07] LABS: Absolute Neutrophil Count 4.6 X10^3/uL (2.0-7.7); Basophil# 0.04 X10^3/uL; Basophil% 0.6 % (0-1); Eosinophils% 1.5 % (0-5); Hematocrit 32.5 % (37-47); Hemoglobin 9.5 g/dL (12.0-15.0); Lymphocyte % 17.5 % (19-41); Mean Corp Hgb Conc 29.2 g/dL (32-36); Mean Corpuscular Hgb 22.3 pg (27.0-32.0); Mean Corpuscular Volume 76.3 fL (81-99); Mean Platelet Vol. 9.2 fl (6.2-12.0); Monocyte# 0.88 X10^3/uL; Monocyte% 12.8 % (0-10); NRBC Flagged by Analyzer 0 % (0-5); Neutrophil # 4.62 X10^3/uL (2.7-7.7); Neutrophil % 67.3 % (47-70); POSITIVE MORPHOLOGY YES; Platelet Count 291 K/mm3 (150-450); RBC Distribution Width CV 30.7 % (11.6-14.6); RBC Distribution Width SD 79.6 fl (35.1-43.9); Red Blood Count 4.26 M/mm3 (4.2-5.4); White Blood Count 6.9 K/mm3 (4.4-11.0)
[2021-01-23 17:11] LABS: Differential Indicated SCAN CRITERIA MET
[2021-01-23 17:21] LABS: Iron 31 ug/dL (50-170); Iron Binding Capacity,Total 493 ug/dL (250-450); PERCENT IRON SATURATION 6.3 % (15.0-55.0)
[2021-01-23 17:50] LABS: Anisocytosis 1+; Crenated RBC RARE; Differential Comment SCANNED; Hypochromasia 2+; Schistocytes RARE
[2021-01-23 18:27] LABS: ALB/GLOB Ratio 0.9 RATIO (0.9-2.4); AST(SGOT) 26 U/L (15-37); Alanine Aminotransfer ALT/SGPT 20 U/L (13-56); Albumin, Serum 3.6 g/dL (3.2-5.0); Alkaline Phosphatase 109 U/L (45-117); Anion Gap 10 (5-15); BUN 16 mg/dL (7-18); BUN/Creat Ratio 13.8 RATIO (10-20); Calcium,Total 9.2 mg/dL (8.5-10.1); Chloride 98 mmol/L (98-107); Creatinine, Serum 1.16 mg/dL (0.55-1.02); EST Glomerular Filtration Rate 47 mL/min (>60); Est Glom Filt Rate - Afr Amer 57 mL/min (>60); Ferritin 228 ng/mL (8-252); Globulin 4.2 g/dL (2.2-4.2); Glucose 103 mg/dL (74-106); Potassium 3.9 mmol/L (3.5-5.1); Protein, Total 7.8 g/dL (6.4-8.2); Sodium Level 136 mmol/L (136-145)
== END ==
PROVIDERS: PCP Nurse Practitioner Family; Visit Provider Internal Medicine Gastroenterology
DX: K92.2 Gastrointestinal hemorrhage, unspecified (principal)
CPT/HCPCS: 36415; 80053; 82728; 83540; 83550; 85025

== ENCOUNTER 2021-02-21 05:59 | Day surgery (SDC) | payer MEDICARE, SELFPAY ==
--- NOTE | 2021-02-21 | IMM_PTH ---
PATIENT: MARIO YEUNG LOC: [facility]ARY U#:[id number] AGE/SX: 85/F ROOM: RE02/21/[address]: Dr. Jasper Sim DO : 1935 BED: DIS: 02/21/2021 SPEC #: [id number] RECD: 02/25/21 12:27 STATUS: SINDY NURY #: [id number] DOMINGO: 02/21/21 00:[address]: Jasper Sim DEPT: IMMUNOHISTOCHEMISTRY RECD BY: Ludivina Liang ENTERED: 02/25/21 12:27 SP TYPE: IMMUNO OTHR DR: Fausto Galicia, VULCANIZING PRESS OPERATOR-C Tissues: B - Esophagus, NOS Procedures: P53 (initial) KI-67 (add) PHYSICIAN & INSTITUTION [place] [address] SPECIMEN INFORMATION: Tissue Source: B ? Distal esophagus biopsy Clinical Info: GI bleed Specimen Number: [id number] CPT code: 84897, 42608 METHODOLOGY: Deparaffinized sections of prefer/formalin-fixed tissue or PAP/DQ stained slides are incubated with monoclonal/polyclonal antibodies/oligonucleotide probes. Localization is made via biotin free immunoperoxidase method. Appropriate controls are performed and reacted as expected. Results on target cell population are indicated in the following table: RESULTS: ANTIBODY / CLONE RESULT Block B P53 (DO-7) negative Ki-67 (30-9) positive, very low These tests were developed and their performance characteristics determined by [facility]. They may not have been cleared or approved by the U.S. Food and Drug Administration. The FDA has determined that such clearance or approval is not necessary. The above immunohistochemical/dualISH markers are ordered and reviewed by the Pathologist. INTERPRETATION: B. Distal esophagus, biopsy: Negative for dysplasia. CIERRA:lilli 02/26/2021
[2021-02-21 06:26] VITALS: BP 149/83; PULSE 106; RESP 18; TEMP 36.6; O2SAT 99; BMI 33.3
[2021-02-21] MEDS: Lactated Ringers 1,000 ML 15 ML IV (06:41)
--- NOTE | 2021-02-21 07:00 | EGD_PTH ---
PATIENT: MARIO YEUNG LOC: MARY U#:[id number] AGE/SX: 85/F ROOM: RE02/21/[address]: Dr. Jasper Sim DO : 1935 BED: DIS: 02/21/2021 SPEC #: [id number] RECD: 02/21/21 11:50 STATUS: SINDY NURY #: [id number] DOMINGO: 02/21/21 07:[address]: Jasper Sim DEPT: SURGICAL PATHOLOGY RECD BY: Geneva Gutierrez ENTERED: 02/21/21 12:51 SP TYPE: EGD BIOPSY HARMONY DR: Fausto Galicia, TRUCK MECHANIC-C Tissues: A - Duodenum, NOS B - Esophagus, NOS C - Transverse colon Procedures: Surgery Specimen Level IV HEADER OPERATION: Colonoscopy, EGD ([facility] PRE-OP DIAGNOSIS: GI bleed TISSUE SUBMITTED: A ? Duodenum biopsy, B ? Distal esophagus biopsy, C ? Transverse polyp MICROSCOPIC DIAGNOSIS A. Duodenum, biopsy: Fragments of duodenal mucosa, no pathologic diagnosis. B. 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 Mild chronic inflammation. Negative for dysplasia. See comment. C. Transverse colon polyp, biopsy: Fragments of tubular adenoma. SJ:rg 02/25/2021 COMMENT B. Alcian blue/PAS stain with matched control is used in the evaluation of the specimen. Immunohistochemistry ([id number]) for P53 and Ki-67 will be performed and results will be reported separately. Case has been reviewed in consultation with Dr. Conn who concurs with the above diagnosis. IDC:AM MICROSCOPIC DESCRIPTION Slides are reviewed. GROSS DESCRIPTION A - Received in fixative is one container labeled with the patient's name and designated duodenum biopsy. The specimen consists of multiple irregular fragments of light roberts soft tissue that in aggregate measure 0.6 x 0.5 x 0.1 cm. The specimen is totally submitted in one cassette. B - Received in fixative is one container labeled with the patient's name and designated distal esophagus biopsy. The specimen consists of multiple irregular fragments of light roberts soft tissue that in aggregate measure 0.6 x 0.3 x 0.1 cm. The specimen is totally submitted in one cassette. C - Received in fixative is one container labeled with the patient's name and designated transverse polyp. The specimen consists of multiple irregular fragments of light roberts soft tissue that in aggregate measure 1.5 x 0.5 x 0.1 cm. The specimen is totally submitted in one cassette. / SJ:lilli 02/21/21 TC:3 CPT: 39355 x3, 30704
--- NOTE | 2021-02-21 07:02 | HP.PCM_ITS ---
History and Physical Date of Admission: 02/21/21 85 F who presents to the office today for worsening anemia. She has a past medical history of CHF, atrial fibrillation on Coumadin therapy. She had a UTI previously and PCP put her on antibiotic for this. Around this time she started having dark stool. A few weeks ago she was in [facility]. PCP Dr. Galicia sent her due to hemoglobin 6.2, WBC 6.3, INR 3.3, to receive blood transfusion. Fecal occult tested and positive and she was discharged home due to inability to find hospital bed. Her behavioral interventionist sent her to her local hospital because of edema in her legs and abdomen: 9 liters/31 pounds lost. Previously on coumadin for Atrial fibrillation management; she is concerned about high risk of stroke. She feels like each day she is feeling stronger. Reports stools to be manager transportation planning in color than previous. She has never had a colonoscopy. She also takes fish oil, vitamin E and vitamin C on a daily basis. She is still been taking these supplements she has not been taking her Coumadin. She has a CHADS2 score of 3 ROS Const Constitutional: Positive for fatigue ENT ENT: Positive for hearing loss Resp Respiratory: Positive for cough Cardio Cardiology: Positive for shortness of breath Musc Musculoskeletal: Positive for joint pain, muscle cramps, stiffness and Arthritis Endo Endocrine: Positive for fatigue Julian/Lymp Hematologic/Lymphatic: Positive for easy bruising Exam Const General: cooperative and comfortable Nutritional Appearance: average body habitus and well nourished [facility] Head: normal to inspection Ears: hearing grossly normal bilaterally Nose: external nose normal Face and sinus: normal facial exam Mouth: oral mucosae normal Throat: posterior oropharynx normal Eyes General: appearance normal, both eyes and all related structures Neck Neck: normal visual inspection Chest Chest palpation & inspection: normal inspection of the chest and normal pa lpation of entire chest wall Resp Effort & Inspection: normal respiratory effort Auscultation: Bilateral: Clear to Auscultation Cardio Palpation: normal PMI Rate: regular rate Rhythm: regular rhythm GI Inspection: normal to inspection Auscultation: normal bowel sounds Percussion: normal to percussion Palpation: no hepatosplenomegaly Skin General: no rashes or lesions noted Neuro General: patient alert Extrem General: normal to inspection Psych Affect: normal affect Assessment and Plan Assessment and Plan (1) GI bleed: Status: Acute Orders: Orders: Comprehensive Metabolic Profil Today Ferritin Today CBC W/Diff, Automated Today Iron+Iron Binding Capacity Today Plan - Dr. Hutchinson Friend, DO: Undergo an EGD and colonoscopy. She has never had a colonoscopy., She will also get blood work including CMP, CBC, ferritin, iron and TIBC. The differential diagnosis for GI bleed would be an gastric ulcer, AVM, neoplasia. This consultation took approximately 40 min close with her niece who is okay with the plan as well as the patient. I have re-examined the patient. There are no clinical changes since date of exam.
--- NOTE | 2021-02-21 07:28 | OP.EGD_ITS ---
Patient Name: Polly Peguero Procedure Date: 02/21/2021 7:08 AM Date of : 1935 Age: 85 Procedure: Upper GI endoscopy Indications: Iron deficiency anemia Providers: Jasper Sim DO Referring MD: Jasper Sim DO Medicines: See the Anesthesia note for documentation of the administered medications Patient Profile: This is an 85 year old female. Refer to note in patient chart for documentation of history and physical. Patient has symptoms. Complications: No immediate complications. Procedure: Pre-Anesthesia Assessment: - Prior to the procedure, a History and Physical was performed, and patient medications and allergies were reviewed. The risks and benefits of the procedure and the sedation options and risks were discussed with the patient. All questions were answered and informed consent was obtained. Patient identification and proposed procedure were verified by the physician in the pre-procedure area. Mental Status Examination: alert and oriented. Airway Examination: normal oropharyngeal airway and neck mobility. Respiratory Examination: clear to auscultation. CV Examination: normal. Prophylactic Antibiotics: The patient does not require prophylactic antibiotics. Prior Anticoagulants: The patient has taken no previous anticoagulant or antiplatelet agents. ASA Grade Assessment: II - A patient with mild systemic disease. After reviewing the risks and benefits, the patient was deemed in satisfactory condition to undergo the procedure. The anesthesia plan was to use moderate sedation / analgesia (conscious sedation). Immediately prior to administration of medications, the patient was re-assessed for adequacy to receive sedatives. The heart rate, respiratory rate, oxygen saturations, blood pressure, adequacy of pulmonary ventilation, and response to care were monitored throughout the procedure. The physical status of the patient was re-assessed after the procedure. After obtaining informed consent, the endoscope was passed under direct vision. Throughout the procedure, the patient's blood pressure, pulse, and oxygen saturations were monitored continuously. The gastroscope was introduced through the mouth, and advanced to the second part of duodenum. The upper GI endoscopy was accomplished without difficulty. The patient tolerated the procedure well. Moderate Sedation: Moderate (conscious) sedation was administered by the endoscopy nurse and supervised by the endoscopist. The patient's oxygen saturation, heart rate, blood pressure and response to care were monitored. Total physician intraservice time was 15 minutes. Scope In: 7:17:09 AM Scope Out: 7:24:37 AM Total Procedure Duration Time 0 hours 7 minutes 28 seconds Findings: LA Grade A (one or more mucosal breaks less than 5 mm, not extending between tops of 2 mucosal folds) esophagitis with no bleeding was found 34 to 35 cm from the incisors. Biopsies were taken with a cold forceps for histology. Verification of patient identification for the specimen was done. Estimated blood loss was minimal. The entire examined stomach was normal. No gross lesions were noted in the second portion of the duodenum. Patchy mildly erythematous mucosa without active bleeding and with no stigmata of bleeding was found in the first portion of the duodenum. This was biopsied with a cold forceps for histology. Verification of patient identification for the specimen was done. Estimated blood loss was minimal. Impression: - LA Grade A reflux esophagitis. Biopsied. - Normal stomach. - No gross lesions in the second portion of the duodenum. - Erythematous duodenopathy. Biopsied. Recommendation: - Written discharge instructions were provided to the patient. - The signs and symptoms of potential delayed complications were discussed with the patient. - Patient has a contact number available for emergencies. - Return to normal activities tomorrow. - Resume previous diet. - Continue present medications. Procedure Code(s): --- Professional --- 09835, Esophagogastroduodenoscopy, flexible, transoral; with biopsy, single or multiple 65440, 59, Moderate sedation services provided by the same physician or other qualified health day care assistant performing the diagnostic or therapeutic service that the sedation supports, requiring the presence of an independent trained observer to assist in the monitoring of the patient's level of consciousness and physiological status; initial 15 minutes of intraservice time, patient age 5 years or older CPT copyright 2017 [employer]. All rights reserved. The codes documented in this report are preliminary and upon storage garage manager review may be revised to meet current compliance requirements. Jasper Sim DO 02/21/2021 7:27:43 AM This report has been signed electronically. Number of Addenda: 1 Note Initiated On: 02/21/2021 7:08 AM Addendum Number: 1 Addendum Date: 10/30/2021 7:29:34 AM MAC was used instead of moderate sedation for the patient. Jasper Sim DO 10/30/2021 7:29:38 AM This report has been signed electronically.
--- NOTE | 2021-02-21 07:28 | OP.CCLET_ITS ---
10/30/2021 Fausto Galicia Re : Upper GI endoscopy procedure for Polly Taylorr Frida This procedure was performed on January. My impressions and recommendations are as follows: Impressions : - LA Grade A reflux esophagitis. Biopsied. - Normal stomach. - No gross lesions in the second portion of the duodenum. - Erythematous duodenopathy. Biopsied. Recommendations : - Written discharge instructions were provided to the patient. - The signs and symptoms of potential delayed complications were discussed with the patient. - Patient has a contact number available for emergencies. - Return to normal activities tomorrow. - Resume previous diet. - Continue present medications. My findings are described in the full procedure note, which is enclosed. If I can be of further assistance, please feel free to contact me at . Sincerely, Jasper Sim, 02/21/2021 7:27:43 AM This report has been signed electronically.
[2021-02-21 07:55] VITALS: BP 105/61; BP 149/83; PULSE 72; RESP 16; TEMP 36.1; O2SAT 100
[2021-02-21 07:58] VITALS: BP 104/61; BP 149/83; PULSE 73; RESP 16; O2SAT 100
--- NOTE | 2021-02-21 07:58 | OP.CCLET_ITS ---
10/30/2021 Fausto Galicia Re : Colonoscopy procedure for Polly Peguero Dear Frida This procedure was performed on January. My impressions and recommendations are as follows: Impressions : - Hemorrhoids found on perianal exam. - Two 1 to 2 mm polyps in the transverse colon, removed with a hot snare. Resected and retrieved. - One 2 mm polyp in the transverse colon, removed with a hot snare. Resected and retrieved. - A single recently bleeding colonic angiodysplastic lesion. Treated with argon plasma coagulation (APC). Recommendations : - Discharge patient to home. - Resume previous diet. - Continue present medications. - Await pathology results. - Repeat colonoscopy in 5 years for surveillance based on pathology results. - Return to GI office in 2 weeks. My findings are described in the full procedure note, which is enclosed. If I can be of further assistance, please feel free to contact me at . Sincerely, Jasper Sim, 02/21/2021 7:58:00 AM This report has been signed electronically.
--- NOTE | 2021-02-21 07:58 | OP.COLON_ITS ---
Patient Name: Polly Peguero Procedure Date: 02/21/2021 7:25 AM Date of : 1935 Age: 85 Procedure: Colonoscopy Indications: This is the patient's first colonoscopy, Iron deficiency anemia Providers: Jasper Sim DO Referring MD: Jasper Sim DO Patient Profile: This is an 85 year old female. Refer to note in patient chart for documentation of history and physical. Patient has symptoms. Last Colonoscopy: none. The patient's first colonoscopy is today. Complications: No immediate complications. Procedure: Pre-Anesthesia Assessment: - Prior to the procedure, a History and Physical was performed, and patient medications and allergies were reviewed. The risks and benefits of the procedure and the sedation options and risks were discussed with the patient. All questions were answered and informed consent was obtained. Patient identification and proposed procedure were verified by the physician in the pre-procedure area. Mental Status Examination: alert and oriented. Airway Examination: normal oropharyngeal airway and neck mobility. Respiratory Examination: clear to auscultation. CV Examination: normal. Prophylactic Antibiotics: The patient does not require prophylactic antibiotics. Prior Anticoagulants: The patient has taken no previous anticoagulant or antiplatelet agents. ASA Grade Assessment: II - A patient with mild systemic disease. After reviewing the risks and benefits, the patient was deemed in satisfactory condition to undergo the procedure. The anesthesia plan was to use moderate sedation / analgesia (conscious sedation). Immediately prior to administration of medications, the patient was re-assessed for adequacy to receive sedatives. The heart rate, respiratory rate, oxygen saturations, blood pressure, adequacy of pulmonary ventilation, and response to care were monitored throughout the procedure. The physical status of the patient was re-assessed after the procedure. After I obtained informed consent, the scope was passed under direct vision. Throughout the procedure, the patient's blood pressure, pulse, and oxygen saturations were monitored continuously. The Colonoscope was introduced through the anus and advanced to the terminal ileum. Scope In: 7:29:30 AM Scope Withdrawal Time 0 hours 7 minutes 53 seconds Scope Out: 7:48:55 AM Total Procedure Duration Time 0 hours 19 minutes 25 seconds Findings: The perianal and digital rectal examinations were normal. Hemorrhoids were found on perianal exam. Two sessile polyps were found in the transverse colon. The polyps were 1 to 2 mm in size. These polyps were removed with a hot snare. Resection and retrieval were complete. Verification of patient identification for the specimen was done. Estimated blood loss was minimal. A 2 mm polyp was found in the transverse colon. The polyp was sessile. The polyp was removed with a hot snare. Resection and retrieval were complete. Verification of patient identification for the specimen was done. Estimated blood loss was minimal. A single small localized angiodysplastic lesion with stigmata of recent bleeding was found at the hepatic flexure. Coagulation for hemostasis using argon plasma at 0.3 liters/minute and 20 allen was successful. Estimated blood loss was minimal. Impression: - Hemorrhoids found on perianal exam. - Two 1 to 2 mm polyps in the transverse colon, removed with a hot snare. Resected and retrieved. - One 2 mm polyp in the transverse colon, removed with a hot snare. Resected and retrieved. - A single recently bleeding colonic angiodysplastic lesion. Treated with argon plasma coagulation (APC). Recommendation: - Discharge patient to home. - Resume previous diet. - Continue present medications. - Await pathology results. - Repeat colonoscopy in 5 years for surveillance based on pathology results. - Return to GI office in 2 weeks. Procedure Code(s): --- Professional --- 16743, 59, Colonoscopy, flexible; with control of bleeding, any method 33546, Colonoscopy, flexible; with removal of tumor(s), polyp(s), or other lesion(s) by snare technique CPT copyright 2017 [employer] [place] [employer]. All rights reserved. The codes documented in this report are preliminary and upon insurance coder review may be revised to meet current compliance requirements. Jasper Sim DO 02/21/2021 7:58:00 AM This report has been signed electronically. Number of Addenda: 1 Note Initiated On: 02/21/2021 7:25 AM Addendum Number: 1 Addendum Date: 10/30/2021 7:29:47 AM MAC was used instead of moderate sedation for the patient. Jasper Sim DO 10/30/2021 7:29:53 AM This report has been signed electronically.
[2021-02-21 08:00] VITALS: BP 102/61; BP 149/83; PULSE 78; RESP 16; O2SAT 100
[2021-02-21 08:05] VITALS: BP 113/61; BP 149/83; PULSE 76; RESP 16; TEMP 36.1; O2SAT 100
[2021-02-21 08:16] VITALS: BP 149/83
== END 2021-02-21 08:42 | disposition home or self-care (01) ==
LOC: EN 06:01 → AC 06:04
PROVIDERS: PCP Nurse Practitioner Family; Referring Provider Nurse Practitioner Family; Visit Provider Internal Medicine Gastroenterology
PROC: 0DJD8ZZ Inspection of Lower Intestinal Tract, Via Natural or Artificial Opening Endoscopic (ICD-10-PCS; CPT 45378; principal; 2021-02-21 06:55)
DX: K55.21 Angiodysplasia of colon with hemorrhage (principal); D12.3 Benign neoplasm of transverse colon; K21.00 Gastro-esophageal reflux disease with esophagitis, without bleeding; D50.9 Iron deficiency anemia, unspecified; D58.2 Other hemoglobinopathies; I13.0 Hypertensive heart and chronic kidney disease with heart failure and stage 1 through stage 4 chronic kidney disease, or unspecified chronic kidney disease; N18.9 Chronic kidney disease, unspecified; I50.9 Heart failure, unspecified; I48.91 Unspecified atrial fibrillation; M19.90 Unspecified osteoarthritis, unspecified site; E78.5 Hyperlipidemia, unspecified; E03.9 Hypothyroidism, unspecified; M85.80 Other specified disorders of bone density and structure, unspecified site; E55.9 Vitamin D deficiency, unspecified; Z79.899 Other long term (current) drug therapy
CPT/HCPCS: 43239; 45382; 45385; 87426; 88305; 88341; 88342; C9803; J7120; J2405

== ENCOUNTER 2021-03-07 13:55 | Outpatient (CLI) | payer MEDICARE, SELFPAY ==
[2021-03-07 14:46] LABS: Absolute Lymphocyte Count 1.24 X10^3/uL (0.83-4.51); Absolute Neutrophil Count 3.9 X10^3/uL (2.0-7.7); Basophil# 0.04 X10^3/uL; Basophil% 0.7 % (0-1); Eosinophil# 0.07 X10^3/uL; Eosinophils% 1.2 % (0-5); Hematocrit 34.3 % (37-47); Hemoglobin 10.7 g/dL (12.0-15.0); Immature Platelet Fraction 2.6 % (1.0-7.9); Lymphocyte # 1.24 X10^3/ul (0.83-4.51); Lymphocyte % 20.8 % (19-41); Mean Corp Hgb Conc 31.2 g/dL (32-36); Mean Corpuscular Hgb 26.3 pg (27.0-32.0); Mean Corpuscular Volume 84.3 fL (81-99); Mean Platelet Vol. 9.4 fl (6.2-12.0); Monocyte# 0.74 X10^3/uL; Monocyte% 12.4 % (0-10); NRBC Flagged by Analyzer 0 % (0-5); Neutrophil # 3.85 X10^3/uL (2.7-7.7); Neutrophil % 64.6 % (47-70); POSITIVE MORPHOLOGY YES; Platelet Count 218 K/mm3 (150-450); RBC Distribution Width CV 28.2 % (11.6-14.6); RBC Distribution Width SD 81.4 fl (35.1-43.9); RET-HE 32.2 pg (30-35); Red Blood Count 4.07 M/mm3 (4.2-5.4); Reticulocyte Count 0.93 % (0.5-1.5)
[2021-03-07 14:53] LABS: Differential Indicated SCAN CRITERIA MET
[2021-03-07 15:18] LABS: Ferritin 48 ng/mL (8-252); Iron 87 ug/dL (50-170); Iron Binding Capacity,Total 538 ug/dL (250-450); PERCENT IRON SATURATION 16.2 % (15.0-55.0)
[2021-03-07 15:29] LABS: Differential Comment SCANNED
[2021-03-07 15:31] LABS: Target Cells 1+
[2021-03-07 15:32] LABS: Schistocytes RARE
[2021-03-07 15:34] LABS: Microcytosis 1+
[2021-03-07 15:35] LABS: Anisocytosis 2+; Poikilocytosis 1+
== END 2021-03-07 23:59 | disposition short-term general hospital (02) ==
LOC: LAB 13:57
PROVIDERS: PCP Nurse Practitioner Family; Visit Provider Nurse Practitioner Adult Health
DX: K92.2 Gastrointestinal hemorrhage, unspecified (principal); D50.9 Iron deficiency anemia, unspecified
CPT/HCPCS: 36415; 82728; 83540; 83550; 85025; 85045

== ENCOUNTER 2021-03-26 10:57 | Outpatient (CLI) | payer MEDICARE, SELFPAY ==
[2021-03-26 11:22] VITALS: BP 115/68; PULSE 77; RESP 16; TEMP 36.3; O2SAT 99
[2021-03-26] MEDS: 0.9% NaCl Peripheral Flush Adult/Peds IV (11:27)
[2021-03-26] MEDS: 0.9% NaCl IVPB Med Flush (250 mL) 15 ML IV (11:36)
[2021-03-26] MEDS: Sodium Ferric Gluconat 250 MG in 0.9% Normal Saline 250 ML 135 MG IV (11:36)
[2021-03-26 14:33] VITALS: BP 126/60; PULSE 69; RESP 16
== END 2021-03-26 23:59 | disposition short-term general hospital (02) ==
LOC: MEDOUTP 11:01
PROVIDERS: PCP Nurse Practitioner Family; Referring Provider Internal Medicine Gastroenterology; Visit Provider Internal Medicine Gastroenterology
DX: D50.9 Iron deficiency anemia, unspecified (principal)
CPT/HCPCS: 96365; 96366; J7050; A4216; J2916

== ENCOUNTER 2021-04-02 12:56 | Outpatient (CLI) | payer MEDICARE, SELFPAY ==
[2021-04-02] MEDS: 0.9% NaCl Peripheral Flush Adult/Peds IV (13:09)
[2021-04-02] MEDS: 0.9% NaCl IVPB Med Flush (250 mL) 15 ML IV (13:09)
[2021-04-02] MEDS: Sodium Ferric Gluconat 250 MG in 0.9% Normal Saline 250 ML 135 MG IV (13:15)
[2021-04-02 13:16] VITALS: BP 120/54; PULSE 69; RESP 16; TEMP 36.5; O2SAT 97
[2021-04-02 15:39] VITALS: BP 126/60; PULSE 67; RESP 16; O2SAT 98
== END 2021-04-02 23:59 | disposition home or self-care (01) ==
LOC: MEDOUTP 12:56
PROVIDERS: PCP Nurse Practitioner Family; Referring Provider Internal Medicine Gastroenterology; Visit Provider Internal Medicine Gastroenterology
DX: D50.9 Iron deficiency anemia, unspecified (principal)
CPT/HCPCS: 96365; 96366; J7050; A4216; J2916

== ENCOUNTER → 2022-06-24 | Outpatient (CLI) | payer MEDICARE, SELFPAY ==
[2022-06-24 11:26] LABS: Absolute Lymphocyte Count 1.16 X10^3/uL (0.83-4.51); Absolute Neutrophil Count 3.2 X10^3/uL (2.0-7.7); Basophil# 0.03 X10^3/uL; Basophil% 0.6 % (0-1); Hematocrit 37.6 % (37-47); Hemoglobin 12.2 g/dL (12.0-15.0); Lymphocyte # 1.16 X10^3/ul (0.83-4.51); Lymphocyte % 22.7 % (19-41); Mean Corp Hgb Conc 32.4 g/dL (32-36); Mean Corpuscular Hgb 30.9 pg (27.0-32.0); Mean Corpuscular Volume 95.2 fL (81-99); Mean Platelet Vol. 9.9 fl (6.2-12.0); Monocyte# 0.56 X10^3/uL; NRBC Flagged by Analyzer 0 % (0-5); Neutrophil # 3.22 X10^3/uL (2.7-7.7); Neutrophil % 63.1 % (47-70); Platelet Count 201 K/mm3 (150-450); Red Blood Count 3.95 M/mm3 (4.2-5.4); White Blood Count 5.1 K/mm3 (4.4-11.0)
[2022-06-24 11:53] LABS: PTHIN 135.7 pg/mL (18.4-80.1)
[2022-06-24 12:02] LABS: Albumin, Serum 3.8 g/dL (3.2-5.0); BUN 31 mg/dL (7-18); Calcium,Total 8.9 mg/dL (8.5-10.1); Chloride 102 mmol/L (98-107); Creatinine, Serum 1.29 mg/dL (0.55-1.02); EST Glomerular Filtration Rate 42 mL/min (>60); Est Glom Filt Rate - Afr Amer 50 mL/min (>60); Glucose 93 mg/dL (74-106); Phosphorus 2.9 mg/dL (2.5-4.9); Potassium 4.2 mmol/L (3.5-5.1); Sodium Level 138 mmol/L (136-145)
== END | disposition home or self-care (01) ==
LOC: LAB 09:59
PROVIDERS: Nurse Practitioner Adult Health; PCP Nurse Practitioner Family; Referring Provider Internal Medicine Nephrology; Visit Provider Internal Medicine Nephrology
DX: N18.31 Chronic kidney disease, stage 3a (principal); D64.9 Anemia, unspecified; K92.2 Gastrointestinal hemorrhage, unspecified
CPT/HCPCS: 36415; 80069; 83970; 85025

== ENCOUNTER → 2023-03-04 | Outpatient (CLI) | payer MEDICARE, SELFPAY ==
--- OUTSIDE RECORDS SUMMARY | 2023-03-04 09:00 | XMS RPT_ITS | CCD ---
Author Name Unknown Address [address] [place] [address] Organization [facility] Care Team Providers Care Sales And Marketing Engineer Name Role Phone REFERRING, RYANNE MAYO ID Unavailable Unavailable FAUSTO GALICIA Unavailable Unavailable FAUSTO GALICIA Unavailable Unavailable FAUSTO SAUL APRN, CNP Primary Care Phys ician FAUSTO GALICIA Attending Unavailable FAUSTO GALICIA Admitting Unavailable FAUSTO GALICIA Primary Care Unavailable FAUSTO GALICIA Consulting Unavailable BRENDA WESTON MD Referring Unavailabl e PROVIDER, UNKNOWN Consulting Unavailable FAUSTO GALICIA Consulting Unavailable BRENDA WESTON MD Primary Care Unavailabl e BRENDA WESTON MD Attending Unavailabl e BRENDA WESTON MD Admitting Unavailabl e PROVIDER, UNKNOWN Consulting Unavailable FAUSTO GALICIA Consulting Unavailable CLARK MCNEIL MD Admitting Unavailable CLARK MCNEIL MD Primary Care Unavailable CLARK MCNEIL MD Attending Unavailable PROVIDER, UNKNOWN Consulting Unavailable BRENDA WESTON MD Primary Care Unavailabl e BRENDA WESTON MD Attending Unavailabl BRENDA Peralta MD Admitting Unavailabl e BRENDA WESTON MD Primary Care Unavailabl e FAUSTO GALICIA Consulting Unavailable BRENDA WESTON MD Attending Unavailabl BRENDA Peralta MD Admitting Unavailabl e PROVIDER, UNKNOWN Consulting Unavailable BRENDA WESTON MD Primary Care Unavailabl e FAUSTO GALICAI Consulting Unavailable BRENDA WESTON MD Attending Unavailabl e BRENDA WESTON MD Admitting Unavailabl e PROVIDER, UNKNOWN Consulting Unavailable BRENDA WESTON MD Primary Care Unavailabl e FAUSTO GALICIA Consulting Unavailable BRENDA WESTON MD Attending Unavailabl e BRENDA WESTON MD Admitting Unavailabl e PROVIDER, UNKNOWN Consulting Unavailable Allergies Allergy Classification Reported Allergen(s) Allergy Type Date of Onset Reaction(s) Facility (3 sources) Angiotensin Converting Enzyme (Vincenzo) Inhibitors; Translations: [angiotensin converting enzyme inhibitors] Drug allergy [facility] Work Phone: (3 sources) Atenolol; Translations: [atenolol] Drug Allergy Fatigue (finding) [facility] Work Phone: (3 sources) Sulfamethoxazole ; Translations: [sulfamethoxazol e] Drug Allergy [facility] Work Phone: Medications Current Medications Medication Drug Class(es) Dates Sig (Normalized) Sig (Original) apixaban 5 mg oral tablet (1 source) Factor Xa Inhibitor Start: 05-08-2022 Eliquis 5 mg oral tablet Dose : 5 mg = 1 tab(s), Oral, BID, # 180 tab(s), 6 Refill(s), Pharmacy: [facility], 147, cm, 05/08/22 14:34:00 EDT, Height, 83.3, kg, 05/08/22 14:34:00 EDT, Dosing Weight Start Date: 05/08/22 Status: Ordered Ascorbic Acid (3 sources) Vitamin C Start: 11-26-2018 Vitamin C qDay, 0 Refill(s) Start Date: 11/26/18 Status: Ordered Co Q-10 100 mg oral capsule (1 source) Start: 11-26-2018 Co Q-10 100 mg oral capsule Dose : 100 mg = 1 cap(s), Oral, Daily, 0 Refill(s) Start Date: 11/26/18 Status: Ordered 24 hr dilTIAZem hydrochloride 240 mg extended release oral capsule (3 sources) Calcium Channel Ramon Start: 05-08-2022 Cartia XT 240 mg/24 hours oral capsule, extended release Dose : 240 mg = 1 cap(s), Oral, qDay, # 90 cap(s), 1 Refill(s), Pharmacy: [facility], A-fib, 147, cm, 05/08/22 14:34:00 EDT, Height, kg, 05/08/22 14:34:00 EDT, Dosing Weight Start Date: 05/08/22 Status: Ordered Completed/Discontinued Medications Medication Drug Class(es) Dates Sig (Normalized) Sig (Original) [id number] 200 actuat albuterol 0.09 mg/actuat metered dose inhaler (3 sources) beta2-Adrenergic Agonist Start: 11-06-2020 End: 06-04-2021 take 1 puff(s) by inhalation every four hours ProAir HFA MDI (90 mcg/inh) inhalation aerosol 1 puff(s), Inhalation, q4h, # 1 EA, 6 Refill(s), Pharmacy: [facility], 147, cm, 11/06/20 9:30:00 EDT, Height, kg, 11/06/20 9:30:00 EDT, Dosing Weight Start Date: 11/06/20 Stop Date: 06/04/21 Status: Ordered Problems Active Problems Problem Classification Problem Date Documented Da te Episodic/Chronic Cardiac dysrhythmias (3 sources) Atrial fibrillation 11-15-2019 Chronic Chronic kidney disease (3 sources) Chronic kidney disease stage 3 03-07-2019 Chronic Chronic kidney disease (1 source) Chronic kidney disease; Translations: [Chronic kidney disease, stage 3 unspecified] Onset: 01-04-2021 Congestive heart failure; nonhypertensive (11 sources) Congestive heart failure; Translations: [Heart failure with reduced ejection fraction] Onset: 12-20-2020 03-07-2019 Chronic Past or Other Problems Problem Classification Problem Date Documented Da te Episodic/Chronic Deficiency and other anemia (1 source) Iron deficiency anemia, unspecified; Translations: [Iron deficiency anemia, unspecified] Onset: 1 Episodic Gastrointestinal hemorrhage (1 source) Gastrointestinal hemorrhage, unspecified; Translations: [Gastrointestinal hemorrhage, unspecified] Onset: 1 Episodic Other aftercare (1 source) residential (current) use of anticoagulants; Translations: [residential (current) use of anticoagulants] Onset: 1 Episodic Results Test Name Value Interpretation Reference Range Facil ity Encounters Encounter Date Encounter Type Care Provider Facility Start: 11-06-2022 End: 11-10-2022 Outreach Lab FAUSTO GALICIA JACK MACHINE OPERATOR - [employer] OPERATOR [facility] Start: 07-19-2021 End: 07-19-2021 ambulatory BRENDA IBANEZ [facility] Start: 02-13-2021 End: 02-13-2021 ambulatory BRENDA IBANEZ [facility] Start: 01-23-2021 End: 01-23-2021 ambulatory BRENDA IBANEZ [facility] Start: 01-21-2021 End: 01-21-2021 ambulatory FAUSTO Irizarry NISHA [facility] Start: 01-11-2021 End: 01-11-2021 ambulatory FAUSTO Irizarry NISHA [facility] Start: 01-04-2021 End: 01-07-2021 ambulatory FAUSTO Irizarry NISHA [facility] Start: 01-01-2021 End: 01-01-2021 Patient encounter procedure FAUSTO GALICIA JACK MACHINE OPERATOR - [employer] OPERATOR [facility] Start: 12-20-2020 End: 12-20-2020 ambulatory BRENDA IBANEZ [facility] Start: 12-18-2020 End: 12-22-2020 Outreach Lab FAUSTO GALICIA JACK MACHINE OPERATOR - [employer] OPERATOR [facility] Start: 09-04-2016 Ambulatory PHY WO ID REFERRING Fac ility:[facility] Procedures Date Procedure Procedure Detail Performing Clinician Start: 01-07-2021 Echocardiography HERMAN GALICIA JACK MACHINE OPERATOR - [employer] OPERATOR Payers Date Payer Category Payer Medicare 1935 Unknown [id number] [id number] [id number] 1935 Unknown [id number] 2.16.84 [id number] 1935 Unknown [id number] 2.16.84 [id number] 1935 Unknown [id number] 2.16.84 [id number] 1935 Unknown [id number] 2.16.84 [id number] 1935 Unknown [id number] 2.16.84 [id number] 1935 Unknown [id number] 2.16.84 [id number] Medicare [id number] Medicare [id number] HOLD [employer] Social History Date Type Detail Facility Start: 09-21-2018 Never smoked tobacco (f inding) [facility] Discharge summary note 02-17-2021 Note Date & Type Note Facility 02-17-2021 Note [facility] DISCHARGE SUMMARY NAME ACCOUNT SEX AGE ADMIT DISCHARGE PT MED. RECORD# NUMBER DATE DATE TYPE MARIO YEUNG [id number] F 85 01/04/21 01/07/21 1 [id number] ROOM: [facility] DATE OF : 1935 ATTENDING PHYSICIAN: Pauline Flowers FINAL DIAGNOSES: 1. Acute on chronic diastolic congestive heart failure. 2. Valvular heart disease. 3. Gastrointestinal bleed. CONSULTING PHYSICIAN: Dr. Brenda Weston. HOSPITAL COURSE: For a full history and physical and consultation, please see chart. Brief summary, see below. The patient is an 85-year-old female. She has a history of microcystic anemia, chronic atrial fibrillation on Coumadin, chronic kidney disease stage III. She was seen in the office by Cardiology, and sent for direct admission. She was recently diagnosed with a GI bleed at [facility]. Her Hemoccult was positive. She received 2 units of packed red blood cells. She was supposed to be transferred to [facility], but she declined. She is to see a diesel technician as an outpatient. When Dr. Weston saw her in the office, she was in acute congestive heart failure with severe pulmonary edema. She was sent directly to the hospital for admission. She was treated with IV diuresis. She was given IV iron for GI bleed and Coumadin was placed on hold. Kidney function did not worsen. She had repeat echocardiogram which showed slightly changed valvular heart disease; however, ejection fraction remained stable. She stated when she was in the doctors office, her weight was 217 pounds and today her weight was 186 pounds. She denies any chest pain, shortness of breath, and lower extremity edema has improved. Today, on the date of discharge, VITAL SIGNS: Blood pressure 145/87, heart rate 84, respirations 18, temperature 97.8, and oxygen saturation 92% on room air. GENERAL: This is a well-nourished, well-developed female in no acute distress who is alert, pleasant, and cooperative. HEENT: Unremarkable. NECK: Neck is supple. LUNGS: Normal respiratory effort, equal lung expansion, clear to auscultation bilaterally. EXTREMITIES: Revealed trace edema. Discharge instructions were discussed with her and her family at the bedside, as well as cardiology who sent a new prescription for Torsemide. She will be restarted on ARB as at home, and Coumadin is placed on hold with recommendation for outpatient evaluation by gastroenterology. DISPOSITION: Discharge destination: Home. MEDICATIONS ON DISCHARGE: (1) Coumadin is on hold for 4 weeks. Recommend diesel technician regarding dark stool. (2) Torsemide 20 mg twice daily per Page 1 of 2 MARIO YEUNG Discharge Summary MARIO YEUNG : 1935 Cardiology. (3) Dulcolax 100 mg 2 times daily p.r.n. for constipation. (4) All other medications are as at home including levothyroxine 88 mcg daily. (5) Metoprolol succinate 25 mg daily. (6) Pantoprazole 40 mg daily. (7) Vitamin D 50,000 units twice a week. (8) Diltiazem extended release 240 mg daily. (9) Losartan 25 mg daily. DISCHARGE INSTRUCTIONS/PLAN: No smoking or alcoholic beverages. No added salt diet. Increase activity as tolerated. Followup with primary care physician in 7 to [address] Weston in 2 to 3 weeks. CBC and BMP on Thursday with results to Fausto Galicia CNP and Dr. Weston. I evaluated the patient myself the accurate E&M above is done by me Epi Flowers MD Dictated by javi Briscoe for Pauline Flowers M.D. 01/07/21 13:24 JOB #: [id number] Transcribed By: am 01/07/21 18:52 Electronically signed by: E-Sign: PAULINE FLOWERS MD 02/17/21 17:59 Page 2 of 2 MARIO YEUNG Discharge Summary [facility] Clinical Note 12-20-2020 Note Date & Type Note Facility 12-20-2020 Note . MICRO - Microbiology PROCEDURE: Urine Culture [*1] SOURCE: Urine, Clean Catch BODY SITE: COLLECTED DATE/TIME: 12/18/2020 10:40 EDT RECEIVED DATE/TIME: 12/19/2020 15:28 EDT START DATE/TIME: 12/19/2020 15:28 EDT FREE TEXT SOURCE: FINAL REPORTS Final Report [] Verified Date/Time/Personnel: 12/20/2020 11:11 EDT 10,000 - 50,000 cfu/ml Multiple bacterial morphotypes present. Probable Contamination. Suggest recollection if clinically indicated. Performing Locations *1: This test was performed at: [facility], [address] [place] [address], [address] [place] [address] ([place]) Evaluation + Plan note LaboratoryRadiology Note Date & Type Note Facility Evaluation + Plan note Future Appointments Appointment Date:01/04/2021 03:15:00 PM Scheduled Provider: Location:[facility] Appointment Type:CV OV Appointment Date:01/15/2021 10:00:00 AM Scheduled Provider: Location:[facility] Appointment Type:PC Nurse Protime Appointment Date:02/08/2021 10:45:00 AM Scheduled Provider: Location:[facility] Appointment Type:PC Nurse Lab Appointment Date:02/12/2021 09:40:00 AM Scheduled Provider:FAUSTO GALICIA APRN - [employer] OPERATOR Location:[facility] Appointment Type:PC OV Follow Up Appointment Date:05/03/2021 08:45:00 AM Scheduled Provider: Location:[facility] Appointment Type:PC Nurse Lab Appointment Date:05/09/2021 09:40:00 AM Scheduled Provider:FAUSTO GALICIA APRN - [employer] OPERATOR Location:[facility] Appointment Type:PC OV Follow Up Future Scheduled TestsBasic Metabolic Panel 12/13/20Iron Level 05/06/21Thyroid Stimulating Hormone 02/05/21Thyroid Stimulating Hormone 05/06/21Free T4 02/05/21Free T4 05/06/21Complete Blood Count 05/06/21Lipid Profile 05/06/21Vitamin D Level 05/06/21Complete Metabolic Panel 05/06/21TIBC 05/06/21XR Hip Minimum 2 Views Left 11/06/20XR Pelvis 1 or 2 Views 11/06/20 [facility] Evaluation + Plan note LaboratoryRadiology Note Date & Type Note Facility Evaluation + Plan note Future Appointments Appointment Date:01/04/2021 03:15:00 PM Scheduled Provider: Location:[facility] Appointment Type:CV OV Appointment Date:01/15/2021 10:00:00 AM Scheduled Provider: Location:[facility] Appointment Type:PC Nurse Protime Appointment Date:02/08/2021 10:45:00 AM Scheduled Provider: Location:[facility] Appointment Type:PC Nurse Lab Appointment Date:02/12/2021 09:40:00 AM Scheduled Provider:FAUSTO GALICIA APRN, CNP Location:[facility] Appointment Type:PC OV Follow Up Appointment Date:05/03/2021 08:45:00 AM Scheduled Provider: Location:[facility] Appointment Type:PC Nurse Lab Appointment Date:05/09/2021 09:40:00 AM Scheduled Provider:FAUSTO GALICIA APRN, CNP Location:[facility] Appointment Type:PC OV Follow Up Diagnostic Tests PendingFolate Level 01/01/21 Future Scheduled TestsBasic Metabolic Panel 12/13/20Iron Level 05/06/21Thyroid Stimulating Hormone 02/05/21Thyroid Stimulating Hormone 05/06/21Free T4 02/05/21Free T4 05/06/21Complete Blood Count 05/06/21Lipid Profile 05/06/21Vitamin D Level 05/06/21Complete Metabolic Panel 05/06/21TIBC 05/06/21XR Chest 2 Views (PA & Lateral) 01/01/21XR Hip Minimum 2 Views Left 11/06/20XR Pelvis 1 or 2 Views 11/06/20 [facility] Evaluation + Plan note Laboratory Note Date & Type Note Facility Evaluation + Plan note Future Appointments Appointment Date:11/13/2022 02:00:00 PM Scheduled Provider:FAUSTO GALICIA APRN, CNP Location:[facility] Appointment Type:PC OV Follow Up Appointment Date:01/02/2023 02:30:00 PM Scheduled Provider: Location:[facility] Appointment Type:CV OV Future Scheduled TestsMicroalbumin Level Urine 05/08/22Microalbumin Level Urine 11/10/21 [facility] Hospital course Narrative Note Date & Type Note Facility Hospital course Narrative No data available for this section [facility] Hospital Discharge instructions Note Date & Type Note Facility Hospital Discharge instructions No data available for this section [facility] Progress note Note Date & Type Note Facility Progress note No data available for this section [facility] Summary Purpose Family History No Family History Records FoundNo Family History Records FoundNo Family History Records Found No data available for this section Advance Directives No Advanced Directives Records FoundNo Advanced Directives Records FoundNo Advanced Directives Records Found Additional Source Comments INFORMATION SOURCE (unrecogn ized section and content) DATE CREATED AUTHOR AUTHOR'S ORGANIZ ATION 01/04/2021 [facility] ([place]) DATE CREATED AUTHOR AUTHOR'S ORGANIZ ATION 08/03/2021 [facility] Patient Care team informatio n (unrecognized section and content) Care Team Personnel Name: FAUSTO GALICIA APRN, CNP Position: P4 Advanced Jet Man Member Role: Primary Care Physician Address: Address: [address] [place] [address]- [place] Care Team Related Persons Name: YFN YEUNG Name: AYLIN KILGORE FOR RECORDS PERTAINING TO PATIENTS WHO ARE OR HAVE BEEN ENROLLED IN A CHEMICAL DEPENDENCY/SUBSTANCEABUSE PROGRAM, SOME INFORMATION MAY BE OMITTED. This clinical summary was aggregated from multiple sources. Caution should be exercised in using it in the provision of clinical care. This summary normalizes information from multiple sources, and as a consequence, information in this document may materially change the coding, format and clinical context of patient data. In addition, data may be omitted in some cases. CLINICAL DECISIONS SHOULD BE BASED ON THE PRIMARY CLINICAL RECORDS. [employer] [facility]. provides no warranty or guarantee of the accuracy or completeness of information in this document.
[2023-03-04 10:09] LABS: BUN 23 mg/dL (7-18); BUN/Creat Ratio 16.5 RATIO (10-20); Calcium,Total 9.1 mg/dL (8.5-10.1); Chloride 104 mmol/L (98-107); Creatinine, Serum 1.39 mg/dL (0.55-1.02); EST Glomerular Filtration Rate 38 mL/min (>60); Est Glom Filt Rate - Afr Amer 46 mL/min (>60); Glucose 92 mg/dL (74-106); Phosphorus 2.9 mg/dL (2.5-4.9); Potassium 3.7 mmol/L (3.5-5.1); Sodium Level 140 mmol/L (136-145)
[2023-03-04 12:22] LABS: Vitamin D,25 Hydroxy 60.2 ng/mL
== END | disposition home or self-care (01) ==
LOC: LAB 08:34
PROVIDERS: PCP Nurse Practitioner Family; Referring Provider Internal Medicine Nephrology; Visit Provider Internal Medicine Nephrology
DX: N18.31 Chronic kidney disease, stage 3a (principal); N25.81 Secondary hyperparathyroidism of renal origin
CPT/HCPCS: 36415; 80069; 82306; 83970

== ENCOUNTER → 2023-06-24 | Outpatient (CLI) | payer MEDICARE, SELFPAY ==
[2023-06-24 09:54] LABS: Hematocrit 36.4 % (37-47); Hemoglobin 11.5 g/dL (12.0-15.0); Mean Corp Hgb Conc 31.6 g/dL (32-36); Platelet Count 199 K/mm3 (150-450); RBC Distribution Width SD 55.6 fl (35.1-43.9); Red Blood Count 3.83 M/mm3 (4.2-5.4); White Blood Count 5.1 K/mm3 (4.4-11.0)
[2023-06-24 10:25] LABS: Albumin, Serum 4.1 g/dL (3.2-5.0); BUN 25 mg/dL (7-18); BUN/Creat Ratio 19.4 RATIO (10-20); Calcium,Total 9.4 mg/dL (8.5-10.1); Chloride 103 mmol/L (98-107); Creatinine, Serum 1.29 mg/dL (0.55-1.02); EST Glomerular Filtration Rate 42 mL/min (>60); Est Glom Filt Rate - Afr Amer 50 mL/min (>60); Glucose 127 mg/dL (74-106); Phosphorus 3.3 mg/dL (2.5-4.9); Potassium 4.1 mmol/L (3.5-5.1); Sodium Level 137 mmol/L (136-145)
== END | disposition home or self-care (01) ==
LOC: LAB 09:31
PROVIDERS: PCP Nurse Practitioner Family; Referring Provider Internal Medicine Nephrology; Visit Provider Internal Medicine Nephrology
DX: N18.31 Chronic kidney disease, stage 3a (principal); D64.9 Anemia, unspecified
CPT/HCPCS: 36415; 80069; 85027

== ENCOUNTER 2023-08-22 17:53 | Inpatient (IN) | payer MEDICARE, SELFPAY ==
[2023-08-22] VITALS (9 sets, daily range): BP systolic 128–177; BP diastolic 74–104; PULSE 72–101; RESP 16–24; TEMP 36.2–36.8; O2SAT 89–98; BMI 40.3; BMI 49.8
--- NOTE | 2023-08-22 18:11 | EKG12_ITS ---
Test Reason : DYSRHYTHMIA Blood Pressure : / mmHG Vent. Rate : 085 BPM Atrial Rate : 000 BPM P-R Int : 000 ms QRS Dur : 074 ms QT Int : 384 ms P-R-T Axes : 000 -28 051 degrees QTc Int : 456 ms Atrial fibrillation with premature ventricular or aberrantly conducted complexes Low voltage QRS Abnormal ECG Confirmed by Lalit Max ([id number]), food expeditor MARIO CORRIGAN ([id number]) on 08/24/2023 10:33:42 AM Referred By: Confirmed By:Lalit Max
--- NOTE | 2023-08-22 18:15 | CT_ITS ---
INDICATION: dizziness EXAMINATION: CT BRAIN - CT Head or Brain W/O Contrast Injection TECHNIQUE: Multiple axial images were obtained of the head without intravenous contrast. The protocol utilizes one or more of the following dose reduction techniques: automated exposure control, adjustment of mA and/or kV according to patient size,and/or use of iterative reconstruction technique. IV Contrast dosage and agent: None. RADIATION DOSAGE (If Supplied By Facility): CTDIvol = ( 44.99 ) mGy, DLP = ( 796.11 ) mGycm COMPARISON: No relevant prior comparison study available FINDINGS: BRAIN PARENCHYMA: No intra- or extra-axial hemorrhage. No evidence of acute infarct. No intracranial mass or mass effect. There is preservation of the miner/white matter interface. Mild chronic periventricular deep white matter changes likely due to microvascular disease. Posterior fossa structures are unremarkable. Atherosclerotic calcifications of the cavernous internal carotid arteries. CSF SPACES: Mild diffuse atrophy appropriate for patient''s age. No hydrocephalus. Basal cisterns are patent. CALVARIUM, SKULL BASE, PARANASAL SINUSES AND MASTOID AIR CELLS: Clear. No discrete lytic or blastic abnormalities. ORBITS: Both globes, extraocular muscles, optic nerves and retrobulbar fat appear unremarkable. ASPECTS Score for Acute Strokes: 10 CT/Brain/Head without Contrast IMPRESSION: No acute intracranial process. Electronically Signed: Thiago Machado MD at 19:22 EDT ,
[2023-08-22] MEDS: Ondansetron 4 MG/2 ML Vial IV (18:24)
--- NOTE | 2023-08-22 18:24 | EDS_ITS ---
<Statement entered by Mandy Connors MD - 08/22/23 21:37> I have personally performed a face to face assessment of the patient and have reviewed the ASAD Note. Patient presents secondary to dizziness with nausea and vomiting. She states that she was sitting outside in a chair today when she became dizzy. She describes it as a spinning sensation. It was a gradual onset. She denies having significant headache. Because of the dizziness she developed nausea and vomiting. She has had some mild congestion and cough recently. No noted fever. Patient sitting upright in bed no acute distress. Head and neck examination unremarkable. Heart is regular rate and rhythm. Lung sounds are clear. Abdomen is soft and nontender. Patient initially given Zofran and Antivert. CBC reveals normal white count 9.6 with 82% neutrophils. Hemoglobin hematocrit are 11.5 and 36.2. BUN is 29 and creatinine is 1.14. LFTs and lipase are normal. CT scan of the head is unremarkable. EKG is A-fib at 85 with no evidence of ischemia. Patient does have a history of A-fib and is on Eliquis. On repeat examination patient reported the dizziness and spinning sensation was much improved, however she continued to have some nausea. She was given a dose of Reglan. Nursing staff noted that patient's oxygen saturations were around 90%. On repeat exam she had some mild wheezes. Chest x-ray was obtained and patient given breathing treatment. On repeat evaluation patient does report that she feels that she is breathing better. Chest x-ray per my interpretation was chronic changes with no evidence of focal infiltrate. Radiology interpretation reviewed and agrees. Patient's O2 sat was 89 to 90% on room air while sitting at rest. With ambulation her oxygen level did drop to 81% and she became quite dyspneic. Patient is given a dose of steroids. She missed her dose of diuretic today so I will add a BNP. I do not suspect significant CHF given her x-ray findings and exam. Patient has had recent URI symptoms so a swab for COVID, influenza, and RSV will also be obtained. At this time she is satting in the mid to high 90s on 2 L nasal cannula. I spoke with the hospitalist regarding admission. HPI History of Present Illness Chief Complaint: Dizziness Narrative Narrative: Patient is a 88-year-old female with history of atrial fibrillation on Eliquis, hypertension who presents to the emergency department for not feeling well today, feeling of dizziness, having some nausea vomiting diarrhea. Patient she woke up not feeling well, she had a slight headache. Patient states she took Tylenol that did not help. While she was outside today sitting in the chair, she notes that when she moves her head she felt unsteady and this made her feel nauseous. Roughly 1 4 PM, patient difficulty ambulating, started having nausea vomiting diarrhea. Patient denies any specific pain however she is here for evaluation. [facility] Medical History (Updated 08/22/23 @ 21:[address] Jennifer Cruz MD) History of GI bleed Wears glasses Cancer Thyroid disease Arthritis Ambulates with cane Easy bruising Gastric reflux Non-smoker Chronic cough History of edema History of echocardiogram Cardiology follow-up encounter Vitamin D deficiency Overweight Osteopenia Hypothyroidism HTN (hypertension) Holosystolic murmur Ovarian cyst GERD (gastroesophageal reflux disease) Dyslipidemia DDD (degenerative disc disease) CKD (chronic kidney disease) CHF (congestive heart failure) Abnormal ultrasound of pelvis Abnormal hemoglobin Afib GI bleed Home Medications ?Medication ?Instructions ?Recorded ?Last Taken ?Type albuterol sulfate 90 mcg/actuation 1 inh inhalation ONCE 01/23/21 Unknown History aerosol inhaler (ProAir HFA) ascorbate calcium (vitamin C) 500 500 mg PO DAILY 01/23/21 Unknown History mg tablet cholecalciferol (vitamin D3) 1,250 1,250 mcg PO 2XW 01/23/21 Unknown History mcg (50,000 unit) capsule fluticasone propionate 50 1 spray intranasal DAILY 01/23/21 Unknown History mcg/actuation nasal spray,suspension (Allergy Relief (fluticasone)) levothyroxine 88 mcg tablet 88 mcg PO DAILY 01/23/21 02/21/21 History (Synthroid) losartan 25 mg tablet 25 mg PO DAILY 01/23/21 02/21/21 History metoprolol succinate 25 mg 25 mg PO DAILY 01/23/21 02/21/21 History tablet,extended release 24 hr pantoprazole 40 mg tablet,delayed 40 mg PO DAILY #90 tabs 12/17/21 Unknown Rx release (Protonix) apixaban 5 mg tablet (Eliquis) 5 mg PO BID 08/22/23 Unknown History diltiazem HCl 240 mg 240 mg PO Q24H 08/22/23 Unknown History capsule,extended release 24 hr ergocalciferol (vitamin D2) 1,250 50,000 unit PO TUFR 08/22/23 Unknown History mcg (50,000 unit) capsule torsemide 10 mg tablet 10 mg PO DAILY 08/22/23 Unknown History Allergy/AdvReac Type Severity Reaction Status Date / Time JOSÉ MIGUEL Inhibitors Allergy Intermediate FATIGUE Verified 08/22/23 17:55 atenolol Allergy Intermediate fatigue Verified 08/22/23 17:55 sulfamethoxazole Allergy Intermediate Rash Verified 08/22/23 17:55 Surgical History History of appendectomy Social History Smoking Status: Never smoker ROS ROS ED ROS Narrative Constitutional: Negative for fever, chills, weight loss. Positive for feeling weakness Eyes: Negative for vision loss, vision change, double vision ENT: Negative for any sore throat, ear pain, congestion Cardiovascular: Negative for any chest pain, tightness, palpitations Respiratory: Negative for any cough, sputum production, hemoptysis, dyspnea, dyspnea on exertion, orthopnea Gastrointestinal: Negative for any abdominal pain, constipation, blood in stool, blood in vomit. Positive for nausea, vomiting, diarrhea : Negative for any urinary frequency, dysuria, retention, blood in urine Muscle skeletal: Negative for any neck pain, back pain Neurological: Negative for any headache, syncope. Positive for feeling of dizziness, describing his unsteadiness Skin: Negative for any rashes, itching, abrasions, lacerations Psychiatric: Negative for any depression, anxiety, stress, suicidal ideation, homicidal ideation Hematologic: Negative for any excessive bruising, easy bleeding EXAM Physical Exam Narrative Exam Narrative: Vital signs reviewed. HEET: Head normocephalic atraumatic, TMs clear bilaterally. Posterior pharynx is clear, moist mucous membranes. Nares clear bilaterally. Pupils are equal round reactive to light. During EOMs, patient did have some more nystagmus when looking to the left. Neck: Supple with no lymphadenopathy or tenderness. No signs of meningismus. Cardiac: Irregular rate, history of A-fib, systolic murmur, no gallops or rubs, equal peripheral pulses bilaterally. Respiratory: Lungs clear to auscultation bilaterally. No chest tenderness. Abdomen: Soft, nontender, nondistended. No abdominal bruit or pulsatile masses. No hepatosplenomegaly Extremities: No peripheral edema, no signs of gross trauma or deformity. Active full range of motion of all extremities. Neuro: Cranial nerves II through XII intact, no focal neurological deficits. Velvet-Hallpike maneuver completed, worsening symptoms in the left side with left- sided horizontal nystagmus. When the patient closed her eyes and sit still, the sensation believes. Skin: Clean dry and intact with no rash, purpura, petechiae, vesicles or pustules. Backs/flank: No CVA tenderness, no midline spinal tenderness, no deformity. Psych: Normal mood and affect. No SI, HI or acute psychosis. Const Vital Signs: 08/22/23 17:53 08/22/23 19:53 08/22/23 19:53 Temperature 98.2 F 97.1 F L Temperature Source Temporal Oral Pulse Rate 75 72 99 Respiratory Rate 16 16 16 Respiratory Pattern Blood Pressure 169/104 H 177/90 H 177/90 H Blood Pressure Mean 125 119 119 Pulse Ox 95 97 89 Oxygen Delivery Method Room Air Room Air Room Air Oxygen Flow Rate (L/min) 08/22/23 20:24 08/22/23 21:11 Temperature 97.7 F L Temperature Source Oral Pulse Rate 80 89 Respiratory Rate 20 H 16 Respiratory Pattern Normal Blood Pressure 143/93 H Blood Pressure Mean 109 Pulse Ox 98 Oxygen Delivery Method Nasal Cannula Oxygen Flow Rate (L/min) 2 Positive well nourished and well developed General Appearance ED: well developed MDM MDM Lab Data Labs: Laboratory Results - last 24 hr 08/22/23 18:26 WBC 9.6 RBC 3.83 L Hgb 11.5 L Hct 36.2 L MCV 94.5 MCH 30.0 MCHC 31.8 L RDW Std Deviation 54.4 H RDW Coeff of Cameron 15.8 H Plt Count 195 MPV 9.8 Immature Gran % (Auto) 0.500 Neut % (Auto) 82.0 H Lymph % (Auto) 8.8 L Edgar % (Auto) 7.9 Eos % (Auto) 0.3 Baso % (Auto) 0.5 Absolute Neuts (auto) 7.9 H Absolute Lymphs (auto) 0.85 Nucleated RBC % 0 Sodium 140 Potassium 3.7 Chloride 103 Carbon Dioxide 28.0 Anion Gap 9 BUN 29 H Creatinine 1.14 H Estim Creat Clear Calc 32.91 Est GFR (MDRD) Af Amer 58 L Est GFR (MDRD) Non-Af 48 L BUN/Creatinine Ratio 25.4 H Glucose 147 H Calcium 9.2 Total Bilirubin 0.70 AST 30 ALT 29 Alkaline Phosphatase 96 Total Protein 7.4 Albumin 4.2 Globulin 3.2 Albumin/Globulin Ratio 1.3 Lipase 47 Radiography Diagnostic Testing: Clinical Impression(s) from Imaging Studies Brain CT 08/22/23 18:15 IMPRESSION: No acute intracranial process. Electronically Signed: Thiago Machado MD at 19:22 EDT , Chest X-Ray 08/22/23 20:38 IMPRESSION: Degenerative changes, as described above. No demonstrated acute cardiopulmonary process. Electronically Signed: Coleman Geller MD at 20:48 EDT , EKG Atrial fibrillation: Attestation: I personally reviewed and interpreted this EKG as follows: Comments: Atrial fibrillation with a rate of 85 bpm, QRS duration 74 ms, no acute ST elevation, no acute infarct noted. Treatment and Re-Evaluation :: Differential diagnosis includes however is not limited to: Benign positional vertigo, central vertigo, CVA, gastroenteritis, viral syndrome Patient went still is in no obvious distress vital signs are stable, patient is nontoxic-appearing. Presenting to the emerged part with complaints of dizziness, feeling nausea and vomiting. Physical examination concerning for vertigo. Patient will be treated with IV fluids, Zofran, meclizine. She will be reevaluated. CT scan of brain will be obtained. Laboratory values will be obtained to ensure there is no electrode abnormality or leukocytosis. EKG shows chronic atrial fibrillation Patient's laboratory values show stable anemia with a hemoglobin 11.5. No leukocytosis, chemistries showed baseline creatinine, glucose 147, lipase was negative. CT scan of the brain was negative for any acute intracranial process. On reevaluation, the patient states that the dizziness, room spinning like sensation was improving. Patient also felt slightly nauseous. Patient be redosed with 5 mg of IV Reglan. Patient would then be reevaluated. On reevaluation, the patient did feel better however the nurse noticed that the patient pulse oxygenation was 90 to 91%. Patient also had some expiratory wheezing. I did order some breathing treatments, as well as IV steroids. After the treatments, the patient was ambulated, patient dropped to 81% and was short of breath and had to stop. Secondary to this finding, I do believe the patient would benefit from admission to the hospital. Patient will receive a viral panel for COVID-19/influenza/RSV. I will speak to the hospitalist. At this time, I have no evidence of SPECT any community-acquired pneumonia, patient does not have history of COPD. Patient does live alone. Discharge Plan Dx/Rx/DC Orders Clinical Impression: Vertigo, Hypoxia, Head congestion, Nausea & vomiting Disposition Disposition: Acute Care [facility]
[2023-08-22] MEDS: 0.9% Normal Saline (1000mL) 1,000 ML 999 ML IV (18:25)
[2023-08-22 18:35] LABS: Absolute Lymphocyte Count 0.85 X10^3/uL (0.83-4.51); Absolute Neutrophil Count 7.9 X10^3/uL (2.0-7.7); Basophil# 0.05 X10^3/uL; Basophil% 0.5 % (0-1); Eosinophil# 0.03 X10^3/uL; Eosinophils% 0.3 % (0-5); Hematocrit 36.2 % (37-47); Hemoglobin 11.5 g/dL (12.0-15.0); Lymphocyte # 0.85 X10^3/ul (0.83-4.51); Lymphocyte % 8.8 % (19-41); Mean Corp Hgb Conc 31.8 g/dL (32-36); Mean Corpuscular Volume 94.5 fL (81-99); Mean Platelet Vol. 9.8 fl (6.2-12.0); Monocyte# 0.76 X10^3/uL; Monocyte% 7.9 % (0-10); NRBC Flagged by Analyzer 0 % (0-5); Neutrophil # 7.87 X10^3/uL (2.7-7.7); Platelet Count 195 K/mm3 (150-450); RBC Distribution Width CV 15.8 % (11.6-14.6); RBC Distribution Width SD 54.4 fl (35.1-43.9); Red Blood Count 3.83 M/mm3 (4.2-5.4); White Blood Count 9.6 K/mm3 (4.4-11.0)
[2023-08-22 18:52] LABS: ALB/GLOB Ratio 1.3 RATIO (0.9-2.4); AST(SGOT) 30 U/L (15-37); Alanine Aminotransfer ALT/SGPT 29 U/L (13-56); Albumin, Serum 4.2 g/dL (3.2-5.0); Alkaline Phosphatase 96 U/L (45-117); Anion Gap 9 (5-15); BUN 29 mg/dL (7-18); BUN/Creat Ratio 25.4 RATIO (10-20); Calcium,Total 9.2 mg/dL (8.5-10.1); Chloride 103 mmol/L (98-107); Creatinine, Serum 1.14 mg/dL (0.55-1.02); EST Glomerular Filtration Rate 48 mL/min (>60); Est Glom Filt Rate - Afr Amer 58 mL/min (>60); Estimated Creatinine Clearance 32.91 ml/min; Globulin 3.2 g/dL (2.2-4.2); Glucose 147 mg/dL (74-106); Lipase 47 U/L (13-75); Potassium 3.7 mmol/L (3.5-5.1); Protein, Total 7.4 g/dL (6.4-8.2); Sodium Level 140 mmol/L (136-145)
[2023-08-22] MEDS: Meclizine HCl 25 MG Tablet PO (19:18)
[2023-08-22] MEDS: Metoclopramide 10 MG/2 ML Vial 5 MG IV (19:58)
[2023-08-22] MEDS: Albuterol 2.5 MG/3 ML VIAL.NEB. INHALATION (20:24)
[2023-08-22] MEDS: Ipratropium/Albuterol Sulfate 3 ML AMPUL.NEB INHALATION (20:24)
--- NOTE | 2023-08-22 20:38 | RAD_ITS ---
STUDY: X-RAY CHEST REASON FOR EXAM: Female, 88 years old. cough TECHNIQUE: Single AP portable view of the chest. COMPARISON: None. FINDINGS: There are moderate interstitial fibrotic changes of the lungs. There is no demonstrated pleural abnormality. There is mild cardiac enlargement. Normal mediastinum and fouzia. Normal visualized pulmonary arteries. There is atherosclerotic tortuosity of the aortic arch and descending thoracic aorta. There are diffuse degenerative changes of the visualized thoracic spine. There is degenerative osteoarthritis of the bilateral shoulders. There is no demonstrated abnormality of the visualized soft tissue structures of the upper abdomen. RAD/Chest 1 View (Portable) IMPRESSION: Degenerative changes, as described above. No demonstrated acute cardiopulmonary process. Electronically Signed: Coleman Geller MD at 20:48 EDT ,
--- NOTE | 2023-08-22 20:48 | CPS ---
x1 Albuterol given to pt. in ER as well
[2023-08-22] MEDS: MethylPREDNISolone 125 MG/2 ML Vial 60 MG IV (21:16)
--- NOTE | 2023-08-22 21:29 | HP.PCM.HOS_ITS ---
HPI - General General Date of Admission: 08/22/23 Date of Service: 08/22/23 Chief Complaint: URI type symptoms, N/V/D. HPI Narrative The patient is an 88 y/o F w/ PMHx: Morbid obesity, GERD, Hx GI bleed/Fe deficiency anemia, HTN, HLD, Chronic anemia, CKD stage III unclear subtype, Hypothyroidism, PAF who presents to the [facility] ED on 08/22/23 with history of general malaise, fatigue, nausea, emesis and diarrhea with mild dizziness, nonproductive cough with dyspnea and occasional wheezing, noted that she woke up feeling unwell and had a slight headache with self administration of Tylenol but unfortunately in the progress of the day while sitting outside in a chair became more unsteady and fatigued prompting eventual ED evaluation to be cautious. 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 She notes feeling mildly improved dyspnea montez following ED breathing treatments. Since ED arrival she denies any loose stools and notes the nausea has improved with the medication in the ED.Workup included T98.2, heart rate 75, BP 169/104, respiratory rate 16, 95% room air, with ambulatory times patient's oxygenation decreased to 81% on room air, CBC with WC 9.6, 11.5, MCV 94.5, platelet 195 with left shift, CMP with BUN/creatinine 29/1.14, GFR 48, glucose 147, hepatic profile unremarkable, lipase 47, CT brain with no acute intracranial finding, chest x-ray with no acute cardiopulmonary findings, rapid SARS COVID/influenza/RSV PCR pending, EKG with atrial fibrillation rate controlled with no acute evidence of ischemia. In the ED patient administered 1 L normal saline, albuterol and DuoNeb therapies, Reglan 5 mg IV x 1, Zofran 4 mg IV x 1, meclizine 25 mg p.o. x 1, Solu-Medrol 60 mg IV x 1. [facility] Medical History History of GI bleed Wears glasses Cancer Thyroid disease Arthritis Ambulates with cane Easy bruising Gastric reflux Non-smoker Chronic cough History of edema History of echocardiogram Cardiology follow-up encounter Vitamin D deficiency Overweight Osteopenia Hypothyroidism HTN (hypertension) Holosystolic murmur Ovarian cyst GERD (gastroesophageal reflux disease) Dyslipidemia DDD (degenerative disc disease) CKD (chronic kidney disease) CHF (congestive heart failure) Abnormal ultrasound of pelvis Abnormal hemoglobin Afib GI bleed Home Medications ?Medication ?Instructions ?Recorded ?Last Taken ?Type albuterol sulfate 90 mcg/actuation 1 inh inhalation ONCE 01/23/21 Unknown History aerosol inhaler (ProAir HFA) ascorbate calcium (vitamin C) 500 500 mg PO DAILY 01/23/21 Unknown History mg tablet cholecalciferol (vitamin D3) 1,250 1,250 mcg PO 2XW 01/23/21 Unknown History mcg (50,000 unit) capsule fluticasone propionate 50 1 spray intranasal DAILY 01/23/21 Unknown History mcg/actuation nasal spray,suspension (Allergy Relief (fluticasone)) levothyroxine 88 mcg tablet 88 mcg PO DAILY 01/23/21 02/21/21 History (Synthroid) losartan 25 mg tablet 25 mg PO DAILY 01/23/21 02/21/21 History metoprolol succinate 25 mg 25 mg PO DAILY 01/23/21 02/21/21 History tablet,extended release 24 hr pantoprazole 40 mg tablet,delayed 40 mg PO DAILY #90 tabs 12/17/21 Unknown Rx release (Protonix) apixaban 5 mg tablet (Eliquis) 5 mg PO BID 08/22/23 Unknown History diltiazem HCl 240 mg 240 mg PO Q24H 08/22/23 Unknown History capsule,extended release 24 hr ergocalciferol (vitamin D2) 1,250 50,000 unit PO TUFR 08/22/23 Unknown History mcg (50,000 unit) capsule torsemide 10 mg tablet 10 mg PO DAILY 08/22/23 Unknown History Allergy/AdvReac Type Severity Reaction Status Date / Time JOSÉ MIGUEL Inhibitors Allergy Intermediate FATIGUE Verified 08/22/23 17:55 atenolol Allergy Intermediate fatigue Verified 08/22/23 17:55 sulfamethoxazole Allergy Intermediate Rash Verified 08/22/23 17:55 Family History Mother Hypertension Heart disease Father Hypertension Heart disease CAD (coronary artery disease) Myocardial infarction Surgical History History of appendectomy Social History household members: none Smoking Status: Never smoker alcohol intake: never substance use type: does not use ROS ROS Narrative Admission Review of Systems: CONSTITUTIONAL: No weight loss, fever, chills, + weakness or fatigue. HEENT: + Headache., Dizziness/possibly vertiginous symptoms Eyes: No visual loss, blurred vision, double vision or yellow sclerae. Ears, Nose, Throat: No hearing loss, sneezing, congestion, runny nose or sore throat. SKIN: No rash or itching, lesions, wounds. CARDIOVASCULAR: No chest pain, chest pressure or chest discomfort, palpitations, edema, orthopnea, syncopal events. RESPIRATORY: + Mild cough, dyspnea, wheezing. No hemoptysis. GASTROINTESTINAL: + Anorexia, nausea, vomiting, diarrhea. No abdominal pain, melena, BRBPR. GENITOURINARY: No dysuria, frequency, urgency or retention. NEUROLOGICAL: + Headache, dizziness/possibly vertiginous symptoms. No syncope, paralysis, ataxia, numbness or tingling in the extremities, focal weakness, change in bowel or bladder control, seizure. MUSCULOSKELETAL: + muscle, back pain, joint pain or stiffness. HEMATOLOGIC: + Chronic anemia, easy bleeding/bruising. LYMPHATICS: No enlarged nodes. No history of splenectomy. PSYCHIATRIC: No history of depression or anxiety. ENDOCRINOLOGIC: No reports of sweating, cold or heat intolerance. No polyuria or polydipsia. ALLERGIES: + History of allergic rhinitis. Vital Signs Vital Signs Vital Signs: 08/22/23 17:53 08/22/23 19:53 08/22/23 19:53 Temperature 98.2 F 97.1 F L Temperature Source Temporal Oral Pulse Rate 75 72 99 Respiratory Rate 16 16 16 Respiratory Pattern Blood Pressure 169/104 H 177/90 H 177/90 H Blood Pressure Mean 125 119 119 Pulse Ox 95 97 89 Oxygen Delivery Method Room Air Room Air Room Air Oxygen Flow Rate (L/min) 08/22/23 20:24 08/22/23 21:11 Temperature 97.7 F L Temperature Source Oral Pulse Rate 80 89 Respiratory Rate 20 H 16 Respiratory Pattern Normal Blood Pressure 143/93 H Blood Pressure Mean 109 Pulse Ox 98 Oxygen Delivery Method Nasal Cannula Oxygen Flow Rate (L/min) 2 Weight Weight: 180 lb Body Mass Index (BMI) 40.3 Physical Exam Narrative Physical Examination: General: Awake, alert, oriented x 3 and cooperative, seated upright in ED bed, fatigued and ill-appearing. Skin: Normal color, normal turgor, no icterus, no cyanosis except occasional staged ecchymoses, bilateral lower extremity venous stasis skin changes. HEENT: AT/NC, EOMI, PERRLA, dry MM, no carotid bruits or JVD noted. Lungs: Diminished, greater bases, occasional end expiratory wheeze, no rhonchi or rales, no evidence of any distress. Heart: Tachycardic, irregular; no gallop, rub audible. Abdomen: Soft, N morbidly obese, TTP, hyperactive BS, no appreciated distention or HSM however habitus makes evaluation difficult. Extremities: No cyanosis, no clubbing, ankle to distal agudelo edema, chronic, see skin. Neurological: Patient awake, alert, oriented as noted, cognitive function intact; pupils equally reactive to light and accommodation, cranial nerves grossly normal, moving all 4 extremities, no focal deficits, strength moderately to severely global decreased secondary to acute presentation complicated by underlying comorbidities. Psychiatric: Affect appears flat, fatigued, ill-appearing, no acute evidence of depressive or anxiety feelings. Results Lab / Micro Data 08/22/23 18:26 08/22/23 18:26 Labs: Laboratory Results - last 24 hr 08/22/23 18:26: WBC 9.6, RBC 3.83 L, Hgb 11.5 L, Hct 36.2 L, MCV 94.5, MCH 30.0, MCHC 31.8 L, RDW Std Deviation 54.4 H, RDW Coeff of Cameron 15.8 H, Plt Count 195, MPV 9.8, Immature Gran % (Auto) 0.500, Neut % (Auto) 82.0 H, Lymph % (Auto) 8.8 L, [place] % (Auto) 7.9, Eos % (Auto) 0.3, Baso % (Auto) 0.5, Absolute Neuts (auto) 7.9 H, Absolute Lymphs (auto) 0.85, Nucleated RBC % 0, Sodium 140, Potassium 3.7, Chloride 103, Carbon Dioxide 28.0, Anion Gap 9, BUN 29 H, Creatinine 1.14 H , Estim Creat Clear Calc 32.91, Est GFR (MDRD) Af Amer 58 L, Est GFR (MDRD) Non- Af 48 L, BUN/Creatinine Ratio 25.4 H, Glucose 147 H, Calcium 9.2, Total Bilirubin 0.70, AST 30, ALT 29, Alkaline Phosphatase 96, Total Protein 7.4, Albumin 4.2, Globulin 3.2, Albumin/Globulin Ratio 1.3, Lipase 47 Imaging Radiology Impression Brain CT 08/22/23 18:15 IMPRESSION: No acute intracranial process. Electronically Signed: Thiago Machado MD at 19:22 EDT , Chest X-Ray 08/22/23 20:38 IMPRESSION: Degenerative changes, as described above. No demonstrated acute cardiopulmonary process. Electronically Signed: Coleman Geller MD at 20:48 EDT , Assessment & Plan Assessment/Plan (1) Viral syndrome: PLAN: Plan The patient is an 88 y/o F w/ PMHx: Morbid obesity, GERD, Hx GI bleed/Fe deficiency anemia, HTN, HLD, Chronic anemia, CKD stage III unclear subtype, Hypothyroidism, PAF who presents to the [facility] ED on 08/22/23 with history of general malaise, fatigue, nausea, emesis and diarrhea with mild dizziness, nonproductive cough with dyspnea and occasional wheezing, noted that she woke up feeling unwell and had a slight headache with self administration of Tylenol but unfortunately in the progress of the day while sitting outside in a chair became more unsteady and fatigued prompting eventual ED evaluation to be cautious. #1. Acute Hypoxia with suspected Acute Bronchospasms secondary to Suspected Acute viral syndrome with cough, dyspnea, malaise, dizziness, nausea, emesis, diarrhea: Will admit to medical surgical floor, maintain on fall precautions, continue judicious hydration, given wheezing the ED will continue ATC budesonide therapy, as needed albuterol, IV Solu-Medrol, will obtain stool enteric and C. difficile PCR to be cautious, will obtain full respiratory viral panel with pending rapid SARS COVID/influenza/RSV upon evaluation patient, will obtain sputum Cx if able to be induced and also procalcitonin, although vague history will have as needed meclizine given dizziness difficult to differentiate between vertiginous symptoms, PT/OT/case management consulted for discharge planning. #2. HF, unclear type: Appears currently compensated, continue Eliquis, losartan, metoprolol, torsemide, not on statin therapy per current list but clarifying will judiciously hydrate as needed given unclear EF history. #3. PAF: We will continue patient on diltiazem, metoprolol and Eliquis regimen. #4. Hypertension: Continue home regimen including losartan, metoprolol, torsemide, diltiazem, PRN hydralazine. #5. Hyperlipidemia: Per current list not on statin therapy but clarifying. #6. Hypothyroidism: We will continue patient home levothyroxine regimen. #7. Allergic rhinitis: We will continue patient home fluticasone regimen. #8. Chronic Kidney Disease Stage III, unclear subtype: Admission BUN/Cr 29/1.14, GFR 48, baseline renal function 1.0-1.3, repeat BMP in AM. #9. Chronic normocytic anemia/Fe deficiency anemia: Admission hemoglobin 9.5, MCV 94.5, baseline hemoglobin primarily 10-11, stable, continue to trend. #10. GERD with history of GI bleed: We will continue patient on PPI. #11. Morbid Obesity: Weight loss and lifestyle changes encouraged. #12. DVT prophylaxis: We will continue patient on apixaban regimen. #13. CODE status: Patient does not have HCPOA or LW in place but notes her niece Polly Peguero who is present would be who she would want to make medication decisions for her if she was unable. Discussed CODE status at length including difference between FULL code, DNR-CCA and DNR-CC status. Following discussions about the differences in these status, requested DNR-CCA, no intubation, no aggressive measures. Advanced Care Planning Face to Face Time: 16 minutes. Charges/Coding Visit Charges Inpatient E&M: 41193 Init Hosp L3 Procedures Hospitalists Procedures: 10661 Advncd Care Plan 30 Min
[2023-08-22 21:47] LABS: BNP,B-Type NATRIURETIC PEPTIDE 440.4 pg/mL (0-100)
[2023-08-22 22:21] LABS: Procalcitonin 0.06 ng/mL (0.00-0.09)
--- NOTE | 2023-08-22 22:33 | NURSING ---
Pt unsure of meds. states she has a med list at home. family to bring in the list.
[2023-08-22] MEDS: 0.9% Normal Saline (1000mL) 1,000 ML 100 ML IV (22:58)
[2023-08-22] MEDS: APIXABAN 5 MG TABLET PO (23:19)
[2023-08-23] VITALS (10 sets, daily range): BP systolic 117–150; BP diastolic 75–85; PULSE 84–114; RESP 18–24; TEMP 36.3–36.6; O2SAT 90–98; BMI 49.9
[2023-08-23] MEDS: Losartan Potassium 25 MG Tablet PO (04:31)
[2023-08-23] MEDS: Levothyroxine 88 MCG Tablet PO (05:33)
[2023-08-23 06:36] LABS: Absolute Lymphocyte Count 0.32 X10^3/uL (0.83-4.51); Absolute Neutrophil Count 3.9 X10^3/uL (2.0-7.7); Basophil# 0.01 X10^3/uL; Basophil% 0.2 % (0-1); Hematocrit 32.9 % (37-47); Hemoglobin 10.4 g/dL (12.0-15.0); Lymphocyte # 0.32 X10^3/ul (0.83-4.51); Lymphocyte % 7.5 % (19-41); Mean Corp Hgb Conc 31.6 g/dL (32-36); Mean Corpuscular Hgb 30.5 pg (27.0-32.0); Mean Corpuscular Volume 96.5 fL (81-99); Mean Platelet Vol. 10.2 fl (6.2-12.0); Monocyte# 0.05 X10^3/uL; Monocyte% 1.2 % (0-10); NRBC Flagged by Analyzer 0 % (0-5); Neutrophil # 3.87 X10^3/uL (2.7-7.7); Neutrophil % 90.4 % (47-70); POSITIVE DIFFERENTIAL YES; Platelet Count 170 K/mm3 (150-450); RBC Distribution Width CV 15.9 % (11.6-14.6); RBC Distribution Width SD 55.9 fl (35.1-43.9); Red Blood Count 3.41 M/mm3 (4.2-5.4); White Blood Count 4.3 K/mm3 (4.4-11.0)
[2023-08-23] MEDS: Budesonide Respules 0.5 MG/2 ML AMPUL.NEB. INHALATION (06:44)
[2023-08-23 07:06] LABS: ALB/GLOB Ratio 1.3 RATIO (0.9-2.4); AST(SGOT) 26 U/L (15-37); Alanine Aminotransfer ALT/SGPT 26 U/L (13-56); Albumin, Serum 3.6 g/dL (3.2-5.0); Alkaline Phosphatase 81 U/L (45-117); Anion Gap 9 (5-15); BUN 24 mg/dL (7-18); BUN/Creat Ratio 24.5 RATIO (10-20); Calcium,Total 8.6 mg/dL (8.5-10.1); Chloride 106 mmol/L (98-107); Creatinine, Serum 0.98 mg/dL (0.55-1.02); EST Glomerular Filtration Rate 57 mL/min (>60); Est Glom Filt Rate - Afr Amer 69 mL/min (>60); Estimated Creatinine Clearance 39.65 ml/min; Globulin 2.8 g/dL (2.2-4.2); Glucose 145 mg/dL (74-106); Potassium 4.2 mmol/L (3.5-5.1); Protein, Total 6.4 g/dL (6.4-8.2); Sodium Level 140 mmol/L (136-145)
--- NOTE | 2023-08-23 07:51 | PN.HOSP_ITS ---
Reason for Visit Reason for Visit: Diagnoses Viral infection, unspecified (08/22/23) Objective Data Objective Data Vital Signs: Vital Signs Temp Pulse Resp BP Pulse Ox O2 Del Method O2 Flow Rate 97.4 F L 100 18 117/75 94 Nasal Cannula 2 08/23/23 05:37 08/23/23 06:45 08/23/23 06:45 08/23/23 05:37 08/23/23 06:45 08/23/23 06:45 08/23/23 05:37 Oxygen Flow Rate (L/min) 2 Oxygen Delivery Method Nasal Cannula Weight: 191 lb 12.835 oz Body Mass Index (BMI) 49.9 Intake & Output: Intake and Output for Last 24 Hours 08/21/23 08/22/23 08/23/23 23:59 23:59 23:59 Intake Total 1000 / 1200 400 / 400 Balance 1000 / 1200 400 / 400 Lab / Micro Data 08/23/23 05:30 08/23/23 05:30 Labs: Laboratory Results - last 24 hr 08/22/23 18:26: WBC 9.6, RBC 3.83 L, Hgb 11.5 L, Hct 36.2 L, MCV 94.5, MCH 30.0, MCHC 31.8 L, RDW Std Deviation 54.4 H, RDW Coeff of Cameron 15.8 H, Plt Count 195, MPV 9.8, Immature Gran % (Auto) 0.500, Neut % (Auto) 82.0 H, Lymph % (Auto) 8.8 L, [place] % (Auto) 7.9, Eos % (Auto) 0.3, Baso % (Auto) 0.5, Absolute Neuts (auto) 7.9 H, Absolute Lymphs (auto) 0.85, Nucleated RBC % 0, Sodium 140, Potassium 3.7, Chloride 103, Carbon Dioxide 28.0, Anion Gap 9, BUN 29 H, Creatinine 1.14 H , Estim Creat Clear Calc 32.91, Est GFR (MDRD) Af Amer 58 L, Est GFR (MDRD) Non- Af 48 L, BUN/Creatinine Ratio 25.4 H, Glucose 147 H, Calcium 9.2, Total Bilirubin 0.70, AST 30, ALT 29, Alkaline Phosphatase 96, B-Natriuretic Peptide 440.4 H, Total Protein 7.4, Albumin 4.2, Globulin 3.2, Albumin/Globulin Ratio 1.3, Lipase 47 08/22/23 21:46: Procalcitonin 0.06 08/23/23 05:30: WBC 4.3 L, RBC 3.41 L, Hgb 10.4 L, Hct 32.9 L, MCV 96.5, MCH 30.5, MCHC 31.6 L, RDW Std Deviation 55.9 H, RDW Coeff of Cameron 15.9 H, Plt Count 170, MPV 10.2, Immature Gran % (Auto) 0.700, Neut % (Auto) 90.4 H, Lymph % (Auto) 7.5 L, [place] % (Auto) 1.2, Eos % (Auto) 0.0, Baso % (Auto) 0.2, Absolute Neuts (auto) 3.9, Absolute Lymphs (auto) 0.32 L, Nucleated RBC % 0, Sodium 140, Potassium 4.2, Chloride 106, Carbon Dioxide 25.0, Anion Gap 9, BUN 24 H, Creatinine 0.98, Estim Creat Clear Calc 39.65, Est GFR (MDRD) Af Amer 69, Est GFR (MDRD) Non-Af 57 L, BUN/Creatinine Ratio 24.5 H, Glucose 145 H, Calcium 8.6, Total Bilirubin 0.60, AST 26, ALT 26, Alkaline Phosphatase 81, Total Protein 6.4, Albumin 3.6, Globulin 2.8, Albumin/Globulin Ratio 1.3 Micro: Microbiology 08/23/23 00:20 Mucosa - Nose Respiratory Panel (PCR) - Final Parainfluenza 3 08/22/23 21:39 Mucosa - Nose SARS-CoV-2, Influenza & RSV (PCR) - Final Radiography Diagnostic Testing: Radiology Impression Brain CT 08/22/23 18:15 IMPRESSION: No acute intracranial process. Electronically Signed: Thiago Machado MD at 19:22 EDT , Chest X-Ray 08/22/23 20:38 IMPRESSION: Degenerative changes, as described above. No demonstrated acute cardiopulmonary process. Electronically Signed: Coleman Geller MD at 20:48 EDT Reading Location ID and State: [address] [place] [address] , Service support , Assessment & Plan Assessment/Plan (1) Viral syndrome: PLAN: Plan The patient is an 88 y/o F was admitted with complaint of dizziness, nausea and vomiting and loose bowel movement. She became dizzy while sitting in the chair and vertigo, gradual onset. Slight headache. She also had mild nonproductive cough and congestion with occasional wheezing, malaise but no fever. #1. Acute Hypoxia with suspected Acute Bronchospasms secondary to Suspected Acute viral syndrome : Patient admitted to the [facility] floor. Does not have history of asthma, COPD or chronic lung disease but has chronic cough. Respiratory panel positive of parainfluenza 3. SARS-CoV-2 influenza and RSV PCR negative. No leukocytosis. SARS COVID/influenza/RSV upon evaluation patient, will obtain sputum Cx if able to be induced and also procalcitonin, although vague history will have as needed meclizine given dizziness difficult to differentiate between vertiginous symptoms, PT/OT/case management consulted for discharge planning. #2. HF, acuity, classification, etiology and staging unclear type: Currently compensated., continue Eliquis, losartan, metoprolol, torsemide, not on statin therapy per current list but clarifying will judiciously hydrate as needed given unclear EF history. #3. PAF: continue patient on diltiazem, metoprolol and Eliquis regimen. #4. Hypertension: Continue home regimen including losartan, metoprolol, torsemide, diltiazem, PRN hydralazine. #5. Hyperlipidemia: Per current list not on statin therapy but clarifying. #6. Hypothyroidism:continue patient home levothyroxine regimen. #7. Allergic rhinitis: continue patient home fluticasone regimen. #8. Chronic Kidney Disease Stage 3B, unclear subtype: Admission BUN/Cr 29/1.14, GFR 48, baseline renal function 1.0-1.3, repeat creatinine shows 0.98, BUN 24. #9. Chronic normocytic anemia/Fe deficiency anemia: Admission hemoglobin 9.5, MCV 94.5, baseline hemoglobin primarily 10-11, 08/22: H&H 10.4/33%. No significant acute change #10. GERD with history of GI bleed: We will continue patient on PPI. #11. Morbid Obesity: Weight loss and lifestyle changes encouraged. #12. DVT prophylaxis: We will continue patient on apixaban regimen. #13. CODE status: Patient does not have HCPOA or LW in place but notes her niece Polly Peguero who is present would be who she would want to make medication decisions for her if she was unable. Discussed CODE status at length including difference between FULL code, DNR-CCA and DNR-CC status. Following discussions about the differences in these status, requested DNR-CCA, no intubation, no aggressive measures. Microbiology Past 72 Hours 08/23/23 00:20 Mucosa - Nose Respiratory Panel (PCR) - Final Parainfluenza 3 08/22/23 21:39 Mucosa - Nose SARS-CoV-2, Influenza & RSV (PCR) - Final Laboratory Results 08/22/23 18:26: WBC 9.6, RBC 3.83 L, Hgb 11.5 L, Hct 36.2 L, MCV 94.5, MCH 30.0, MCHC 31.8 L, RDW Std Deviation 54.4 H, RDW Coeff of Cameron 15.8 H, Plt Count 195, MPV 9.8, Immature Gran % (Auto) 0.500, Neut % (Auto) 82.0 H, Lymph % (Auto) 8.8 L, [place] % (Auto) 7.9, Eos % (Auto) 0.3, Baso % (Auto) 0.5, Absolute Neuts (auto) 7.9 H, Absolute Lymphs (auto) 0.85, Nucleated RBC % 0, Sodium 140, Potassium 3.7, Chloride 103, Carbon Dioxide 28.0, Anion Gap 9, BUN 29 H, Creatinine 1.14 H , Estim Creat Clear Calc 32.91, Est GFR (MDRD) Af Amer 58 L, Est GFR (MDRD) Non- Af 48 L, BUN/Creatinine Ratio 25.4 H, Glucose 147 H, Calcium 9.2, Total Bilirubin 0.70, AST 30, ALT 29, Alkaline Phosphatase 96, B-Natriuretic Peptide 440.4 H, Total Protein 7.4, Albumin 4.2, Globulin 3.2, Albumin/Globulin Ratio 1.3, Lipase 47 08/22/23 21:46: Procalcitonin 0.06 08/23/23 05:30: WBC 4.3 L, RBC 3.41 L, Hgb 10.4 L, Hct 32.9 L, MCV 96.5, MCH 30.5, MCHC 31.6 L, RDW Std Deviation 55.9 H, RDW Coeff of Cameron 15.9 H, Plt Count 170, MPV 10.2, Immature Gran % (Auto) 0.700, Neut % (Auto) 90.4 H, Lymph % (Auto) 7.5 L, [place] % (Auto) 1.2, Eos % (Auto) 0.0, Baso % (Auto) 0.2, Absolute Neuts (auto) 3.9, Absolute Lymphs (auto) 0.32 L, Nucleated RBC % 0, Sodium 140, Potassium 4.2, Chloride 106, Carbon Dioxide 25.0, Anion Gap 9, BUN 24 H, Creatinine 0.98, Estim Creat Clear Calc 39.65, Est GFR (MDRD) Af Amer 69, Est GFR (MDRD) Non-Af 57 L, BUN/Creatinine Ratio 24.5 H, Glucose 145 H, Calcium 8.6, Total Bilirubin 0.60, AST 26, ALT 26, Alkaline Phosphatase 81, Total Protein 6.4, Albumin 3.6, Globulin 2.8, Albumin/Globulin Ratio 1.3
[2023-08-23] MEDS: Ensure Clear 120 ML Liquid PO ×2 (08:42→11:28)
[2023-08-23] MEDS: APIXABAN 5 MG TABLET PO (08:42)
[2023-08-23] MEDS: Furosemide 20 MG Tablet PO (08:43)
[2023-08-23] MEDS: Fluticasone 0.05% 1 SPRAY NASAL.SRY NASAL (08:43)
[2023-08-23] MEDS: Metoprolol(XL)Succ 25 MG Tablet PO (08:43)
[2023-08-23] MEDS: dilTIAZem CD 240 MG Capsule PO (08:44)
[2023-08-23] MEDS: Pantoprazole Sodium 40 MG Tablet PO (08:44)
--- NOTE | 2023-08-23 10:32 | PCM.DC ---
Discharge Instructions Diet Discharge Diet: No restrictions Activity Discharge Activity: Return to Normal Activity Weight Bearing Status: Weight bearing as tolerated Dressing / Incision Call your doctor if you observe: Fever of 101 or Higher, Coldness, Increased Pain, Numbness or Tingling, Change in Color, Inability to urinate, Inability to have a bowel movement, Using more than 1 pad per hour, Shortness of breath, Dizziness, Fainting spells, Swelling in the ankles, Chest pain, Prolonged hiccupping, Increased palpitations (irregular heartbeat) and Calf discomfort Follow Up Care When: IN 2 WEEKS Test Results: Test results from this visit will be discussed in further detail at your follow-up appointment, if applicable. Discharge Plan Admission Admit Date/Time: 08/22/23 21:32 Primary Reason for Your Visit: Acute parainfluenza viral bronchitis Attending Provider: Mendoza Ashraf Primary Care Provider: Fausto Galicia [employer] Consulting Providers: Jennifer Cruz Instructions Additional Instructions / Restrictions: Mucinex DM and Claritin are available [id number]. Discharge Orders/Prescriptions Prescriptions: New dextromethorphan-guaifenesin [Mucinex DM] 60-1,200 mg tablet extended release 12 hr 1 tab PO Q12H 7 Days Qty: 14 0RF Claritin 10 mg tablet,chewable 10 mg PO DAILY PRN (Reason: allergy symptoms) 7 Days Qty: 7 0RF Continued albuterol sulfate [ProAir HFA] 90 mcg/actuation HFA aerosol inhaler 1 inh inhalation ONCE ascorbate calcium (vitamin C) 500 mg tablet 500 mg PO DAILY cholecalciferol (vitamin D3) 1,250 mcg (50,000 unit) capsule 1,250 mcg PO 2XW fluticasone propionate [Allergy Relief (fluticasone)] 50 mcg/actuation spray,suspension 1 spray intranasal DAILY Rx Instructions: administer into each nostril levothyroxine [Synthroid] 88 mcg tablet 88 mcg PO DAILY losartan 25 mg tablet 25 mg PO DAILY metoprolol succinate 25 mg tablet extended release 24 hr 25 mg PO DAILY pantoprazole [Protonix] 40 mg tablet,delayed release (DR/EC) 40 mg PO DAILY Qty: 90 3RF diltiazem HCl 240 mg capsule,extended release 24hr 240 mg PO Q24H Eliquis 5 mg tablet 5 mg PO BID ergocalciferol (vitamin D2) 1,250 mcg (50,000 unit) capsule 50,000 unit PO TUFR torsemide 10 mg tablet 10 mg PO DAILY Referrals / Follow Up: Fausto Galicia NP, [facility] [facility] [Primary Care Provider] - Within 2 Weeks Disposition Disposition (needs filled in before D/C Order can be placed): Home, Self Care
--- NOTE | 2023-08-23 12:31 | PCM.DC.SUM ---
Providers Date of Admission: 08/22/23 Date of Discharge: 08/23/23 Primary Care Physician: Fausto Galicia, FLY [facility] LOCKSTITCH-C Reason For Visit: VIRAL SYNDROME, HYPOXIA Diagnosis Discharge Diagnosis (1) Viral syndrome: Status: Acute Code(s): B34.9 - Viral infection, unspecified Plan The patient is an 88 y/o F was admitted with complaint of dizziness, nausea and vomiting and loose bowel movement. She became dizzy while sitting in the chair and vertigo, gradual onset. Slight headache. She also had mild nonproductive cough and congestion with occasional wheezing, malaise but no fever. #1. Acute Hypoxia with suspected Acute Bronchospasms due to acute parainfluenza 3 bronchitis: [facility]. Does not have history of asthma, COPD or chronic lung disease but has chronic cough. Respiratory panel positive of parainfluenza 3. SARS-CoV-2 influenza and RSV PCR negative. No leukocytosis. Patient has Flonase at home. Prescribed Claritin and Mucinex DM [id number] for 7 days. Continue incentive spirometry and PEP for 1 week. She said that she has history of sinusitis and allergic rhinitis. Possible DNS. #2. Chronic HF; classification, etiology and staging unclear type: Currently compensated., continue Eliquis, losartan, metoprolol, torsemide, not on statin therapy per current list. No acute issues. Follow with PCP. #3. PAF: continue patient on diltiazem, metoprolol and Eliquis regimen. #4. Hypertension: Continue home regimen including losartan, metoprolol, torsemide, diltiazem, PRN hydralazine. #5. Hyperlipidemia: Per current list not on statin therapy but clarifying. #6. Hypothyroidism:continue patient home levothyroxine regimen. #7. Allergic rhinitis: continue patient home fluticasone regimen. #8. Chronic Kidney Disease Stage 3B, unclear subtype: Admission BUN/Cr 29/1.14, GFR 48, baseline renal function 1.0-1.3, repeat creatinine shows 0.98, BUN 24. #9. Chronic normocytic anemia/Fe deficiency anemia: Admission hemoglobin 9.5, MCV 94.5, baseline hemoglobin primarily 10-11, 08/22: H&H 10.4/33%. No significant acute change #10. GERD with history of GI bleed: We will continue patient on PPI. #11. Morbid Obesity: Weight loss and lifestyle changes encouraged. #12. DVT prophylaxis: We will continue patient on apixaban regimen. #13. CODE status: Patient does not have HCPOA or LW in place but notes her niece Polly Peguero who is present would be who she would want to make medication decisions for her if she was unable. Discussed CODE status at length including difference between FULL code, DNR-CCA and DNR-CC status. Following discussions about the differences in these status, requested DNR-CCA, no intubation, no aggressive measures. Patient was admitted as inpatient for acute hypoxia with dizziness, vertigo, nausea and vomiting. Her symptoms unexpectedly resolved quickly. Respiratory panel shows parainfluenza 3. Walking pulse oximetry shows no further requirement of oxygen. Pulse ox 95% on room air at rest and 90% on walking. She wants to go home therefore discharged. Discharge medication reconciliation done. Discharge follow-up instructions completed. Discharge process discussed with the patient and all questions were answered to patient's satisfaction. Follow with PCP in 1 to 2 weeks Total time spent, exact 35 minutes on discharge meds reconciliation, examination, coordination of care with nurses and ancillary staff, review of imaging and blood test and discussion with the patient on follow-up instructions. Microbiology Past 72 Hours 08/23/23 00:20 Mucosa - Nose Respiratory Panel (PCR) - Final Parainfluenza 3 08/22/23 21:39 Mucosa - Nose SARS-CoV-2, Influenza & RSV (PCR) - Final Laboratory Results 08/22/23 18:26: WBC 9.6, RBC 3.83 L, Hgb 11.5 L, Hct 36.2 L, MCV 94.5, MCH 30.0, MCHC 31.8 L, RDW Std Deviation 54.4 H, RDW Coeff of Cameron 15.8 H, Plt Count 195, MPV 9.8, Immature Gran % (Auto) 0.500, Neut % (Auto) 82.0 H, Lymph % (Auto) 8.8 L, [place] % (Auto) 7.9, Eos % (Auto) 0.3, Baso % (Auto) 0.5, Absolute Neuts (auto) 7.9 H, Absolute Lymphs (auto) 0.85, Nucleated RBC % 0, Sodium 140, Potassium 3.7, Chloride 103, Carbon Dioxide 28.0, Anion Gap 9, BUN 29 H, Creatinine 1.14 H, Estim Creat Clear Calc 32.91, Est GFR (MDRD) Af Amer 58 L, Est GFR (MDRD) Non-Af 48 L, BUN/Creatinine Ratio 25.4 H, Glucose 147 H, Calcium 9.2, Total Bilirubin 0.70, AST 30, ALT 29, Alkaline Phosphatase 96, B-Natriuretic Peptide 440.4 H, Total Protein 7.4, Albumin 4.2, Globulin 3.2, Albumin/Globulin Ratio 1.3, Lipase 47 08/22/23 21:46: Procalcitonin 0.06 08/23/23 05:30: WBC 4.3 L, RBC 3.41 L, Hgb 10.4 L, Hct 32.9 L, MCV 96.5, MCH 30.5, MCHC 31.6 L, RDW Std Deviation 55.9 H, RDW Coeff of [place] 15.9 H, Plt Count 170, MPV 10.2, Immature Gran % (Auto) 0.700, Neut % (Auto) 90.4 H, Lymph % (Auto) 7.5 L, [place] % (Auto) 1.2, Eos % (Auto) 0.0, Baso % (Auto) 0.2, Absolute Neuts (auto) 3.9, Absolute Lymphs (auto) 0.32 L, Nucleated RBC % 0, Sodium 140, Potassium 4.2, Chloride 106, Carbon Dioxide 25.0, Anion Gap 9, BUN 24 H, Creatinine 0.98, Estim Creat Clear Calc 39.65, Est GFR (MDRD) Af Amer 69, Est GFR (MDRD) Non-Af 57 L, BUN/Creatinine Ratio 24.5 H, Glucose 145 H, Calcium 8.6, Total Bilirubin 0.60, AST 26, ALT 26, Alkaline Phosphatase 81, Total Protein 6.4, Albumin 3.6, Globulin 2.8, Albumin/Globulin Ratio 1.3 Medications at Discharge Home Medications albuterol sulfate 90 mcg/actuation aerosol inhaler (ProAir HFA) 1 inh inhalation ONCE 01/23/21 ascorbate calcium (vitamin C) 500 mg tablet 500 mg PO DAILY 01/23/21 cholecalciferol (vitamin D3) 1,250 mcg (50,000 unit) capsule 1,250 mcg PO 2XW 01/23/21 fluticasone propionate 50 mcg/actuation nasal spray,suspension (Allergy Relief (fluticasone)) 1 spray intranasal DAILY 01/23/21 levothyroxine 88 mcg tablet (Synthroid) 88 mcg PO DAILY 01/23/21 losartan 25 mg tablet 25 mg PO DAILY 01/23/21 metoprolol succinate 25 mg tablet,extended release 24 hr 25 mg PO DAILY 01/23/21 pantoprazole 40 mg tablet,delayed release (Protonix) 40 mg PO DAILY #90 tabs 12/17/21 apixaban 5 mg tablet (Eliquis) 5 mg PO BID 08/22/23 diltiazem HCl 240 mg capsule,extended release 24 hr 240 mg PO Q24H 08/22/23 ergocalciferol (vitamin D2) 1,250 mcg (50,000 unit) capsule 50,000 unit PO TUFR 08/22/23 torsemide 10 mg tablet 10 mg PO DAILY 08/22/23 dextromethorphan-guaifenesin ER 60 mg-1,200 mg tab,extend release,12hr (Mucinex DM) 1 tab PO Q12H 7 days #14 tabs 08/23/23 loratadine 10 mg chewable tablet (Claritin) 10 mg PO DAILY PRN allergy symptoms 1 week #7 tabs 08/23/23 Physical Exam Narrative Seen and examined. No fever. History of chronic cough for 2 to 3 months. Complain of sinus congestion, sinusitis and feels a lot of mucus in the throat area when she wakes up in the morning. Seems mainly upper respiratory cough syndrome. Advised to follow with ENT as she also has sinusitis, allergic rhinitis and possible DNS Physical exam General: Alert, Oriented x3, Cooperative HEENT: Atraumatic, PERRLA, EOMI, Normocephalic Oral: No Gingival or Mucosal Lesions/ Ulcerations Neck: Supple, No JVD, Negative Carotid Bruits Chest wall/Lungs: Air entry diminished in bilateral lung bases. No crepitation/rhonchi Cardiovascular: Irregular rate and rhythm, Normal S1, Normal S2, No M/G/R Abdomen: Bowel Sounds Present, Soft, Non Tender, Non-Distended : No dysuria. No renal angle tenderness. No suprapubic tenderness. Extremities: No edema, Capillary Refill Less than 3 Seconds Skin: No rashes, No breakdown Musculoskeletal: No Tenderness to Palpation of Joints or Extremities Neurological: Cranial nerves II-XII grossly intact, DTR 2+/4. No acute focal neurological deficit. Psych/Mental Status: Normal Affect, Appropriate. Weight / BMI Weight Weight: 191 lb 12.835 oz Body Mass Index (BMI) 49.9 ABG / Lab / Microbiology Data 08/23/23 05:30 08/23/23 05:30 Laboratory: Laboratory Results - last 24 hr 08/22/23 18:26: WBC 9.6, RBC 3.83 L, Hgb 11.5 L, Hct 36.2 L, MCV 94.5, MCH 30.0, MCHC 31.8 L, RDW Std Deviation 54.4 H, RDW Coeff of [place] 15.8 H, Plt Count 195, MPV 9.8, Immature Gran % (Auto) 0.500, Neut % (Auto) 82.0 H, Lymph % (Auto) 8.8 L, [place] % (Auto) 7.9, Eos % (Auto) 0.3, Baso % (Auto) 0.5, Absolute Neuts (auto) 7.9 H, Absolute Lymphs (auto) 0.85, Nucleated RBC % 0, Sodium 140, Potassium 3.7, Chloride 103, Carbon Dioxide 28.0, Anion Gap 9, BUN 29 H, Creatinine 1.14 H, Estim Creat Clear Calc 32.91, Est GFR (MDRD) Af Amer 58 L, Est GFR (MDRD) Non-Af 48 L, BUN/Creatinine Ratio 25.4 H, Glucose 147 H, Calcium 9.2, Total Bilirubin 0.70, AST 30, ALT 29, Alkaline Phosphatase 96, B-Natriuretic Peptide 440.4 H, Total Protein 7.4, Albumin 4.2, Globulin 3.2, Albumin/Globulin Ratio 1.3, Lipase 47 08/22/23 21:46: Procalcitonin 0.06 08/23/23 05:30: WBC 4.3 L, RBC 3.41 L, Hgb 10.4 L, Hct 32.9 L, MCV 96.5, MCH 30.5, MCHC 31.6 L, RDW Std Deviation 55.9 H, RDW Coeff of [place] 15.9 H, Plt Count 170, MPV 10.2, Immature Gran % (Auto) 0.700, Neut % (Auto) 90.4 H, Lymph % (Auto) 7.5 L, [place] % (Auto) 1.2, Eos % (Auto) 0.0, Baso % (Auto) 0.2, Absolute Neuts (auto) 3.9, Absolute Lymphs (auto) 0.32 L, Nucleated RBC % 0, Sodium 140, Potassium 4.2, Chloride 106, Carbon Dioxide 25.0, Anion Gap 9, BUN 24 H, Creatinine 0.98, Estim Creat Clear Calc 39.65, Est GFR (MDRD) Af Amer 69, Est GFR (MDRD) Non-Af 57 L, BUN/Creatinine Ratio 24.5 H, Glucose 145 H, Calcium 8.6, Total Bilirubin 0.60, AST 26, ALT 26, Alkaline Phosphatase 81, Total Protein 6.4, Albumin 3.6, Globulin 2.8, Albumin/Globulin Ratio 1.3 Microbiology: Microbiology 08/23/23 00:20 Mucosa - Nose Respiratory Panel (PCR) - Final Parainfluenza 3 08/22/23 21:39 Mucosa - Nose SARS-CoV-2, Influenza & RSV (PCR) - Final Radiography Diagnostic Testing: Radiology Impression Brain CT 08/22/23 18:15 IMPRESSION: No acute intracranial process. Electronically Signed: Thiago Machado MD at 19:22 EDT , Chest X-Ray 08/22/23 20:38 IMPRESSION: Degenerative changes, as described above. No demonstrated acute cardiopulmonary process. Electronically Signed: Coleman Geller MD at 20:48 EDT , D/C Instructions Discharge Diet: No restrictions Weight Bearing Status: Weight bearing as tolerated Call your doctor if you observe: Fever of 101 or Higher, Coldness, Increased Pain, Numbness or Tingling, Change in Color, Inability to urinate, Inability to have a bowel movement, Using more than 1 pad per hour, Shortness of breath, Dizziness, Fainting spells, Swelling in the ankles, Chest pain, Prolonged hiccupping, Increased palpitations (irregular heartbeat) and Calf discomfort When: IN 2 WEEKS Meaningful Use Info Meaningful Use Meaningful Use Diagnoses (Choose all that apply): None applicable Ischemic Stroke Statin Dosing Therapy Reference: STATIN DOSE THERAPY REFERENCE: * Patients > 75 years receive moderate or high dose statin therapy. * Patients 75 years or YOUNGER should receive HIGH intensity statin dose unless contraindicated. You will be required to document reason for non-treatment if statin daily dose does not meet guidelines. HIGH DOSE STATIN THERAPY DAILY Atorvastatin > than or = to 40 mg Rosuvastatin > than or = to 20 mg Amlodipine + Atorvastatin > than or = to 2.5/40 mg Ezetimibe + Simvastatin 10/80 mg Simvastatin 80mg Discharge Plan Admission Admit Date/Time: 08/22/23 21:32 Primary Reason for Your Visit: Acute parainfluenza viral bronchitis Attending Provider: Mendoza Ashraf Primary Care Provider: Fausto Galicia [employer] LOCKSTITCH Consulting Providers: Jennifer Cruz Instructions Additional Instructions / Restrictions: Mucinex DM and Claritin are available [id number]. Discharge Orders/Prescriptions Prescriptions: New dextromethorphan-guaifenesin [Mucinex DM] 60-1,200 mg tablet extended release 12 hr 1 tab PO Q12H 7 Days Qty: 14 0RF Claritin 10 mg tablet,chewable 10 mg PO DAILY PRN (Reason: allergy symptoms) 7 Days Qty: 7 0RF Continued albuterol sulfate [ProAir HFA] 90 mcg/actuation HFA aerosol inhaler 1 inh inhalation ONCE ascorbate calcium (vitamin C) 500 mg tablet 500 mg PO DAILY cholecalciferol (vitamin D3) 1,250 mcg (50,000 unit) capsule 1,250 mcg PO 2XW fluticasone propionate [Allergy Relief (fluticasone)] 50 mcg/actuation spray,suspension 1 spray intranasal DAILY Rx Instructions: administer into each nostril levothyroxine [Synthroid] 88 mcg tablet 88 mcg PO DAILY losartan 25 mg tablet 25 mg PO DAILY metoprolol succinate 25 mg tablet extended release 24 hr 25 mg PO DAILY pantoprazole [Protonix] 40 mg tablet,delayed release (DR/EC) 40 mg PO DAILY Qty: 90 3RF diltiazem HCl 240 mg capsule,extended release 24hr 240 mg PO Q24H Eliquis 5 mg tablet 5 mg PO BID ergocalciferol (vitamin D2) 1,250 mcg (50,000 unit) capsule 50,000 unit PO TUFR torsemide 10 mg tablet 10 mg PO DAILY Referrals / Follow Up: Fausto Galicia FLY [employer] L[employer]STITCH, FL[employer]ITCH-C [Primary Care Provider] - Within 2 Weeks Jaime Hudson MD [Med Staff - Active Staff] - Within 1 Month Disposition Disposition (needs filled in before D/C Order can be placed): Home, Self Care Charges/Coding Visit Charges Inpatient E&M: 48260 Disch Hosp >30min
== END 2023-08-23 15:05 | disposition home or self-care (01) | DRG 202 ==
LOC: ED 21:09 → MS3 22:01
PROVIDERS: Nurse Practitioner; Admitting Provider Family Medicine; Emergency Provider Emergency Medicine; PCP Nurse Practitioner Family; Visit Provider Internal Medicine
DX: J20.4 Acute bronchitis due to parainfluenza virus (principal); I13.0 Hypertensive heart and chronic kidney disease with heart failure and stage 1 through stage 4 chronic kidney disease, or unspecified chronic kidney disease; Z68.41 Body mass index [BMI] 40.0-44.9, adult; I50.9 Heart failure, unspecified; N18.32 Chronic kidney disease, stage 3b; I48.0 Paroxysmal atrial fibrillation; E66.01 Morbid (severe) obesity due to excess calories; D50.9 Iron deficiency anemia, unspecified; E03.9 Hypothyroidism, unspecified; E78.5 Hyperlipidemia, unspecified; K21.9 Gastro-esophageal reflux disease without esophagitis; J30.9 Allergic rhinitis, unspecified; Z79.51 Long term (current) use of inhaled steroids; Z79.01 Long term (current) use of anticoagulants; Z79.899 Other long term (current) drug therapy; Z66 Do not resuscitate
CPT/HCPCS: 36415; 70450; 71045; 80053; 83690; 83880; 84145; 85025; 87070; 87205; 87631; 87633; 93005; 94640; 94668; 97162; 97166; 97802; 99285; J7030; A4216; J2405

== ENCOUNTER → 2023-09-14 | Outpatient (CLI) | payer MEDICARE, SELFPAY ==
[2023-09-14 09:35] LABS: Hematocrit 34.8 % (37-47); Hemoglobin 11.3 g/dL (12.0-15.0); Mean Corp Hgb Conc 32.5 g/dL (32-36); Mean Corpuscular Hgb 31.2 pg (27.0-32.0); Mean Corpuscular Volume 96.1 fL (81-99); Mean Platelet Vol. 9.9 fl (6.2-12.0); Platelet Count 193 K/mm3 (150-450); RBC Distribution Width CV 15.7 % (11.6-14.6); RBC Distribution Width SD 55.7 fl (35.1-43.9); Red Blood Count 3.62 M/mm3 (4.2-5.4); White Blood Count 4.8 K/mm3 (4.4-11.0)
[2023-09-14 10:23] LABS: ALB/GLOB Ratio 1.3 RATIO (0.9-2.4); AST(SGOT) 21 U/L (15-37); Alanine Aminotransfer ALT/SGPT 19 U/L (13-56); Albumin, Serum 3.7 g/dL (3.2-5.0); Alkaline Phosphatase 91 U/L (45-117); Anion Gap 8 (5-15); BUN 29 mg/dL (7-18); Calcium,Total 9.2 mg/dL (8.5-10.1); Chloride 104 mmol/L (98-107); Creatinine, Serum 1.26 mg/dL (0.55-1.02); EST Glomerular Filtration Rate 43 mL/min (>60); Est Glom Filt Rate - Afr Amer 52 mL/min (>60); Globulin 2.9 g/dL (2.2-4.2); Glucose 103 mg/dL (74-106); Potassium 4.1 mmol/L (3.5-5.1); Protein, Total 6.6 g/dL (6.4-8.2); Sodium Level 139 mmol/L (136-145)
== END | disposition home or self-care (01) ==
LOC: LAB 08:56
PROVIDERS: PCP Nurse Practitioner Family; Referring Provider Nurse Practitioner Family; Visit Provider Nurse Practitioner Family
DX: N18.30 Chronic kidney disease, stage 3 unspecified (principal); D63.8 Anemia in other chronic diseases classified elsewhere
CPT/HCPCS: 36415; 80053; 85027

== ENCOUNTER → 2023-12-24 | Outpatient (CLI) | payer MEDICARE, SELFPAY ==
[2023-12-24 09:36] LABS: Albumin, Serum 4.1 g/dL (3.2-5.0); BUN 28 mg/dL (7-18); BUN/Creat Ratio 19.3 RATIO (10-20); Calcium,Total 9.2 mg/dL (8.5-10.1); Chloride 105 mmol/L (98-107); Creatinine, Serum 1.45 mg/dL (0.55-1.02); EST Glomerular Filtration Rate 36 mL/min (>60); Est Glom Filt Rate - Afr Amer 44 mL/min (>60); Glucose 104 mg/dL (74-106); Phosphorus 3.4 mg/dL (2.5-4.9); Potassium 4.1 mmol/L (3.5-5.1); Sodium Level 140 mmol/L (136-145)
== END | disposition home or self-care (01) ==
LOC: LAB 08:18
PROVIDERS: PCP Nurse Practitioner Family; Referring Provider Internal Medicine Nephrology; Visit Provider Internal Medicine Nephrology
DX: N18.31 Chronic kidney disease, stage 3a (principal)
CPT/HCPCS: 36415; 80069

== ENCOUNTER → 2024-02-01 | Outpatient (CLI) | payer MEDICARE, SELFPAY ==
[2024-02-01 11:05] LABS: Anion Gap 4 (5-15); BUN 23 mg/dL (7-18); BUN/Creat Ratio 19.5 RATIO (10-20); Calcium,Total 9.3 mg/dL (8.5-10.1); Chloride 103 mmol/L (98-107); Creatinine, Serum 1.18 mg/dL (0.55-1.02); EST Glomerular Filtration Rate 46 mL/min (>60); Est Glom Filt Rate - Afr Amer 56 mL/min (>60); Glucose 102 mg/dL (74-106); Sodium Level 138 mmol/L (136-145)
[2024-02-01 11:06] LABS: Vitamin D,25 Hydroxy 53.3 ng/mL
== END | disposition home or self-care (01) ==
LOC: LAB 10:22
PROVIDERS: PCP Nurse Practitioner Family; Referring Provider Internal Medicine Nephrology; Visit Provider Internal Medicine Nephrology
DX: N17.9 Acute kidney failure, unspecified (principal); E55.9 Vitamin D deficiency, unspecified
CPT/HCPCS: 36415; 80048; 82306

== ENCOUNTER → 2024-08-08 | Outpatient (CLI) | payer MEDICARE, SELFPAY ==
[2024-08-08 11:14] LABS: Anion Gap 11 (5-15); BUN 21 mg/dL (4-19); BUN/Creat Ratio 17.1 RATIO (10-20); Calcium,Total 9.5 mg/dL (7.6-11.0); Carbon Dioxide 28.6 mmol/L (21.0-32.0); Chloride 99 mmol/L (98-108); Creatinine, Serum 1.22 mg/dL (0.70-1.20); EST Glomerular Filtration Rate 43 (>60); Glucose 107 mg/dL (70-99); Potassium 4.6 mmol/L (3.3-5.1); Sodium Level 138 mmol/L (133-145)
[2024-08-08 11:15] LABS: Vitamin D,25 Hydroxy 29.3 ng/mL (30-100)
== END | disposition home or self-care (01) ==
LOC: LAB 09:37
PROVIDERS: PCP Nurse Practitioner Family; Referring Provider Internal Medicine Nephrology; Visit Provider Internal Medicine Nephrology
DX: N17.9 Acute kidney failure, unspecified (principal); E55.9 Vitamin D deficiency, unspecified
CPT/HCPCS: 36415; 80048; 82306

== ENCOUNTER → 2024-09-14 | Outpatient (CLI) | payer MEDICARE, SELFPAY ==
--- NOTE | 2024-09-14 11:56 | ECHOD_ITS ---
Reason For Study Reason For Study: MURMUR Procedure This was a 2D Doppler, Color Flow transthoracic echocardiogram. Exam performed in department. Left Ventricle Normal LV size. Left ventricular systolic function is normal. The estimated ejection fraction is 53 %. No regional wall motion abnormalities noted. Right Ventricle Normal RV size. Normal systolic function. Atria The left atrium is mildly enlarged. The right atrium is moderately enlarged. Mitral Valve There is mild to moderate mitral annular calcification. Tricuspid Valve Normal tricuspid valve. Moderate (2+) tricuspid valve insufficiency. Pulmonary artery systolic pressure is 54 mmHg. Aortic Valve Trisinus/trileaflet aortic valve. Moderate focal aortic valve calcification. Peak aortic valve gradient 55 mmHg. Mean aortic valve gradient 34 mmHg. Moderate aortic stenosis. Great Vessels Normal aortic root. The pulmonary artery is normal size. Inferior vena cava collapse with respiration. Pericardium/Pleural No pericardial effusion. MMode/2D Measurements & Calculations LVIDd: 3.9 cm IVSd: 0.97 cm LVOT diam: 2.0 cm LVIDs: 2.8 cm LVPWd: 0.97 cm LVOT area: 3.0 cm2 RVDd: 4.0 cm FS: 30.2 % Ao root diam: 2.5 cm LAV(MOD-bp): 64.9 ml LVAd ap4: 18.8 cm2 LAV(MOD-bp) Indexed: 40.4 ml/m2 LVLd ap4: 6.4 cm LAV(MOD-sp2): 62.5 ml EDV(MOD-sp4): 46.6 ml LAV(MOD-sp4): 63.5 ml EDV(sp4-el): 47.1 ml LVAs ap4: 11.9 cm2 LVLs ap4: 5.6 cm ESV(MOD-sp4): 22.7 ml ESV(sp4-el): 21.6 ml EF(MOD-sp4): 51.3 % EF(sp4-el): 54.2 % SV(MOD-sp4): 23.9 ml SV(sp4-el): 25.5 ml LA A4 area: 22.7 cm2 SI(MOD-sp4): 14.9 ml/m2 LA dimension(2D): 3.9 cm RA A4 area: 27.0 cm2 TAPSE: 1.7 cm Doppler Measurements & Calculations MV E max dottie: 118.4 cm/sec Ao V2 max: 370.6 cm/sec LV V1 max: 88.3 cm/sec Ao max P.1 mmHg LV V1 max P.1 mmHg Ao V2 mean: 276.6 cm/sec LV V1 mean P.8 mmHg Ao mean P.5 mmHg LV V1 mean: 63.6 cm/sec Ao V2 VTI: 89.8 cm LV V1 VTI: 21.4 cm AV (velocity ratio): 0.24 CHRISTINE(I,D): 0.71 cm2 CHRISTINE(V,D): 0.71 cm2 SV(LVOT): 64.0 ml PA V2 max: 91.3 cm/sec TR max dottie: 358.4 cm/sec TR max P.4 mmHg ECHO/Echo Complete Interpretation Summary Normal LV size. Left ventricular systolic function is normal. Moderate (2+) tricuspid valve insufficiency. The left atrium is mildly enlarged. The right atrium is moderately enlarged. Mean aortic valve gradient 34 mmHg. Moderate aortic stenosis. The estimated ejection fraction is 53 %. Ordering Physician: Maxine Moser Referring Physician: LETY DELGADILLO Performed By: Funmilayo Dale RDCS
== END | disposition home or self-care (01) ==
LOC: CVS 11:56
PROVIDERS: PCP Nurse Practitioner Family; Referring Provider Physician Assistant Medical; Visit Provider Physician Assistant Medical
DX: I35.0 Nonrheumatic aortic (valve) stenosis (principal)
CPT/HCPCS: 93306

== ENCOUNTER → 2024-10-20 | Outpatient (CLI) | payer MEDICARE, SELFPAY ==
[2024-10-20 12:50] LABS: Hematocrit 33.5 % (37-47); Hemoglobin 10.9 g/dL (12.0-15.0); Immature Granulocytes Count 0.020 X10^3/uL (0.0-0.0); Mean Corp Hgb Conc 32.5 g/dL (32-36); Mean Corpuscular Volume 94.9 fL (81-99); Mean Platelet Vol. 10.4 fl (6.2-12.0); NRBC Flagged by Analyzer 0 % (0-5); Platelet Count 184 K/mm3 (150-450); RBC Distribution Width CV 16.3 % (11.6-14.6); RBC Distribution Width SD 55.8 fl (35.1-43.9); Red Blood Count 3.53 M/mm3 (4.2-5.4); White Blood Count 4.8 K/mm3 (4.4-11.0)
[2024-10-20 16:28] LABS: Color, Urine Straw (Yellow); Glucose, Dipstick Normal (Normal); Ketone-Dipstick Negative (Negative); Leukocyte Esterase-Dipstick Negative /ul (Negative); Nitrite-Dipstick Negative (Negative); Occult Blood-Urine Negative /ul (Negative); Protein-Dipstick 30 mg/dl (Negative); Specific Gravity, Urine 1.010 (1.002-1.030); Urine Bilirubin Dipstick Negative (Negative)
[2024-10-20 17:04] LABS: Creatinine, Urine (random) 57.70 mg/dL (28.00-217.00); Microalbumin,Random Urine 36.4 mg/L (<20 mg/L)
[2024-10-20 17:19] LABS: AST(SGOT) 27 U/L (<=31); Alanine Aminotransfer ALT/SGPT 17 U/L (<=34); Albumin, Serum 4.3 g/dL (3.4-4.8); Alkaline Phosphatase 86 U/L (35-104); Anion Gap 11 (5-15); BUN 28 mg/dL (4-19); BUN/Creat Ratio 24.3 RATIO (10-20); Calcium,Total 9.4 mg/dL (7.6-11.0); Carbon Dioxide 27.6 mmol/L (21.0-32.0); Chloride 100 mmol/L (98-108); Ferritin 108 ng/mL (22-378); Globulin 2.4 g/dL (2.2-4.2); Glucose 88 mg/dL (70-99); Iron 135 ug/dL (50-170); Iron Binding Capacity,Total 406 ug/dL (250-450); Iron Binding Capacity,Unsat 271 ug/dL (228-428); Potassium 4.5 mmol/L (3.3-5.1); Vitamin D,25 Hydroxy 24.7 ng/mL (30-100)
== END | disposition home or self-care (01) ==
LOC: MTLAB 10:58
PROVIDERS: PCP Nurse Practitioner Family; Referring Provider Nurse Practitioner Family; Visit Provider Nurse Practitioner Family
DX: E03.9 Hypothyroidism, unspecified (principal); N18.31 Chronic kidney disease, stage 3a; E55.9 Vitamin D deficiency, unspecified; R80.9 Proteinuria, unspecified; R73.01 Impaired fasting glucose; I12.9 Hypertensive chronic kidney disease with stage 1 through stage 4 chronic kidney disease, or unspecified chronic kidney disease
CPT/HCPCS: 36415; 80053; 81002; 82043; 82306; 82570; 82728; 83036; 83540; 83550; 84443; 85025